=== PATIENT | male | born 1955 | race African-American/Black ===

== ENCOUNTER 2017-10-15 01:49 | Observation (INO) | payer MEDICAID, OTHER ==
[2017-10-15 04:18] LABS: Anion Gap 12 mmol/L (10-20); BUN (Urea Nitrogen) 17 mg/dL (8.4-25.7); Calc. Creatinine Clearance 0 mL/min (70-130); Calcium 8.1 mg/dL (7.8-10.44); Carbon Dioxide 23 mmol/L (23-31); Chloride 113 mmol/L (98-107); Estimated GFR-MDRD 56
--- NOTE | 2017-10-15 08:50 | HP-2 ---
CODE STATUS: FULL. PRIMARY CARE PHYSICIAN: Mil eduardo. ATTENDING: Dr. Javy Slade RESIDENT: Ted Asher M.D. HISTORIAN: History taken from the ED doctor who got history from snf as the patient is not a very reliable historian. CHIEF COMPLAINT: Cough. HISTORY OF PRESENT ILLNESS: Mr. Gates is a 62-year-old male with past medical history of dementia, bowel diversion with ostomy and schizophrenia who lives at a snf. At the snf he munguia d a temperature of 103 and a cough that started yesterday. He was taken to the [place] ER where he tested positive for influenza A. He had a lactate of 2.0 and he had an elevated temperature and he had tachycardia. They transferred him to [facility] ER for sepsis workup. In the ER in [facility] he received a 1 liter normal saline bolus. PAST MEDICAL HISTORY: 1. Dementia. 2. Schizophrenia. 3. Colostomy for small bowel diversion. 4. Type 2 diabetes mellitus. PAST SURGICAL HISTORY: Colostomy. ALLERGIES: No known drug allergies. MEDICATIONS: 1. Aspirin 81 mg p.o. daily. 2. MiraLax 17 grams p.o. daily. 3. NovoLog 35 units subcu 3 times a day. 4. Potassium chloride 20 mEq p.o. 5. Risperdal 2 mg p.o. daily. 6. Vitamin D3. FAMILY HISTORY: Unknown. SOCIAL HISTORY: Unknown. REVIEW OF SYSTEMS: Unable to obtain as the patient just said no to every question and does not seem like a very reliable historian. PHYSICAL EXAMINATION: VITAL SIGNS: Blood pressure 138/69, pulse 102, respiratory rate 18, temperature 98.2, pulse ox 98% o n room air. Current weight 113 kilograms. GENERAL: The patient is alert and oriented x0 in no acute distress. He is morbidly obese. He did n ot interact appropriately throughout the encounter. EYES: Pupils are equal, round, reactive to light and accommodation. Extraocular muscles intact. Co njunctiva within normal limits. ENT: Tympanic membranes pearly balderrama without bulging or erythema. Nasal mucosa and oropharynx within normal limits. NECK: Supple, without lymphadenopathy or thyromegaly. CARDIOVASCULAR: Rate was tachycardic. Regular rhythm. No murmurs or gallops. RESPIRATORY: Normal effort, no retractions. Lungs had minimal rhonchi bilaterally. SKIN: Warm and dry without cyanosis or lesions. ABDOMEN: Soft, nontender. Ostomy bag on the left side. No masses or distention. EXTREMITIES: No clubbing, cyanosis or edema. MUSCULOSKELETAL: Structure and tone within normal limits. Full range of motion. NEUROLOGIC: No focal deficits. Limited neuro exam performed. LABORATORY DATA: White blood cell count 6.5, hemoglobin 11.2, hematocrit 33.5, platelets 159. Sodiu m 143, potassium 4.8, chloride 113, carbon dioxide 23, BUN 17, creatinine 1.52, glucose 131, calcium 8.1, lactic acid 1.6. Influenza A positive in [place]. ASSESSMENT AND PLAN: A 62-year-old male with past medical history of dementia. 1. Sepsis, likely secondary to influenza A. Start Tamiflu, IV fluids at 150 mL an hour. Continue t o monitor vitals. Place on observation. 2. Type 2 diabetes mellitus. Continue home medications, Accu-Cheks a.c. and at bedtime, hyperglycem ic protocol. 3. Acute kidney injury. Creatinine initially 1.7 in [place] ER, after receiving IV fluids it i s now down to 1.52. We will continue IV fluids and continue to monitor kidney function. 4. Diet: Heart healthy, consistent carbohydrate. 5. Activity: Ambulate with assist. CODE STATUS: Full code. DISPOSITION/LENGTH OF HOSPITAL STAY: One day. Symptomatic medication will be provided. History and physical exam as well as management discussed with Dr. Slade.
--- NOTE | 2017-10-15 09:09 | PDOC.FM ---
- Subjective Subjective: Patient pleasant and has no complaints. Denies pain. Simply states he is ready to go home. - Objective MAR Reviewed: Yes Result Diagrams: 10/15/17 02:26 <Briana Watts - Last Filed: 10/15/17 12:05> - Objective Vital Signs & Weight: Vital Signs (12 hours) Temp Pulse Resp BP Pulse Ox 10/15/17 10:33 98.9 F 105 H 20 10/15/17 09:46 98.9 F 105 H 20 140/66 95 Weight Weight 104.893 kg Result Diagrams: 10/15/17 02:26 <Jvay Slade - Last Filed: 10/15/17 12:15> Phys Exam - Physical Examination anterior wheezing bilaterally, wheezing in posterior RENZO Cardiovascular: RRR, no significant murmur Gastrointestinal: soft, non-tender, no distention Musculoskeletal: no edema Neurological: non-focal Deviation from normal: not oriented to person, place, or time. Oriented with clues. Skin: cap refill <2 seconds <Briana Watts - Last Filed: 10/15/17 12:05> Dx/Plan (1) Influenza A Code(s): J10.1 - FLU DUE TO OTH IDENT INFLUENZA VIRUS W OTH RESP MANIFEST Status: Acute Plan: Likely source of fever. treat symptomatically and patient received tamiflu. cont. LIkely can return to assisted later today. (2) Diabetes mellitus Code(s): E11.9 - TYPE 2 DIABETES MELLITUS WITHOUT COMPLICATIONS Status: Chronic Plan: cont home regimen. (3) Dementia Code(s): F03.90 - UNSPECIFIED DEMENTIA WITHOUT BEHAVIORAL DISTURBANCE Status: Chronic <Briana Watts - Last Filed: 10/15/17 12:05> Attending Addendum - Attending Addendum I personally evaluated the patient and discussed the management with Dr. Watts. I agree with the History, Examination, Assessment and Plan documented above with any addition or exceptions noted below. Patient feeling well this morning, reports he is ready to go home. We still do not have a valid explanation for the fever he had in the ER. Blood cultures and urine cultures obtained but are negative thus far. Will check respiratory viral panel. Encourage ambulation and fluid hydration. May consider discharge later today depending on his clinical status. <Javy Slade - Last Filed: 10/15/17 12:15>
[2017-10-15] MEDS ORDERED: Acetaminophen 325 MG TAB PO PRN ×2 (10:17→10:30)
[2017-10-15] MEDS ORDERED: Dextrose 5% in Water 1,000 ML IV PRN (10:17)
[2017-10-15] MEDS ORDERED: HumaLOG 300 UNITS/3 ML VIAL SC PRN (10:17)
[2017-10-15] MEDS ORDERED: Insulin NPH/Reg Insulin Hm 300 UNITS/3 ML VIAL SC SCH ×2 (10:17→11:00)
[2017-10-15] MEDS ORDERED: Oseltamivir 75 MG CAP PO SCH ×2 (10:17→11:00)
[2017-10-15] MEDS ORDERED: Dextrose 50% Abboject 50 ML SYRINGE SLOW IVP PRN (10:17)
[2017-10-15] MEDS ORDERED: risperiDONE 1 MG TAB PO SCH ×2 (10:17→11:00)
[2017-10-15 10:25] VITALS: BMI 39.6
[2017-10-15] MEDS ORDERED: Ondansetron ODT 4 MG TAB SL PRN (10:30)
[2017-10-15] MEDS ORDERED: Ondansetron HCl/PF 4 MG/2 ML Vial IVP PRN (10:30)
[2017-10-15] MEDS ORDERED: Sodium Chloride 0.9% 1,000 ML IV SCH (10:30)
--- NOTE | 2017-10-15 12:23 | PDOC.EVN ---
Attending Addendum - Attending Addendum I personally evaluated the patient and discussed the management with Dr. Asher. I agree with the History, Examination, Assessment and Plan documented in his H& P with any addition or exceptions noted below. Patient here with congestion, runny nose, fever, and cough with influenza test positive. Will treat with Tamiflu. Patient has mild persistent tachycardia and therefore will fluid hydrate. Has some degree of ALVARO on lab testing though we do not know his baseline Cr. Will see if it improves through the day. Patient is well appearing. If does well through the day, he may be able to be discharged relatively soon. Symptomatic treatment will be provided.
[2017-10-15] MEDS: Sodium Chloride 0.9% 1,000 ML IV SCH ×2 (12:25→18:47)
[2017-10-15 15:26] LABS: Anion Gap 11 mmol/L (10-20); BUN (Urea Nitrogen) 14 mg/dL (8.4-25.7); Calc. Creatinine Clearance 82 mL/min (70-130); Calcium 8.4 mg/dL (7.8-10.44); Carbon Dioxide 23 mmol/L (23-31); Chloride 109 mmol/L (98-107); Estimated GFR-MDRD 64
[2017-10-15] MEDS: Insulin NPH/Reg Insulin Hm 300 UNITS/3 ML VIAL SC SCH ×2 (15:37→21:44)
[2017-10-15] MEDS: HumaLOG 300 UNITS/3 ML VIAL SC PRN (17:32)
[2017-10-15 21:30] LABS: Bilirubin Negative (Negative); Blood, Urine Large (Negative); Glucose, Urine (Dipstick) 250 mg/dL (Negative); Ketone, Urine Negative (Negative); Nitrite Negative (Negative); Protein, Urine (Dipstick) Negative (Neg-Trace)
[2017-10-15 21:33] LABS: Bacteria/HPF None Seen HPF (None Seen); Hyaline Casts/LPF 4-6 HYALINE CAST LPF (0-3 Hyaline); RBC/HPF 21-50 HPF (0-3); Squamous Epithelial None Seen HPF (0-3); WBC/HPF 0-3 HPF (0-3)
[2017-10-15] MEDS: Oseltamivir 75 MG CAP PO SCH (21:44)
[2017-10-16] MEDS: Sodium Chloride 0.9% 1,000 ML IV SCH ×2 (01:50→07:21)
[2017-10-16 05:07] LABS: #Basophils 0.1 thou/uL (0.0-0.2); #Eosinphils 0.4 thou/uL (0.0-0.7); #Lymphocytes 1.7 thou/uL (1.20-3.40); #Monocytes 0.7 thou/uL (0.11-0.59); #Neutrophils 2.5 thou/uL (1.40-6.50); %Basophils 1.9 % (0.0-1.0); %Eosinophils 7.3 % (0.0-10.0); %Lymphocytes 31.5 % (21.0-51.0); %Monocytes 12.2 % (0.0-10.0); Hematocrit 31.2 % (42.0-52.0); Mean Platelet Volume 7.1 fL (7.4-10.4); Red Blood Cell (RBC) Count 3.26 mill/uL (4.70-6.10); White Blood Cell (WBC) Count 5.3 thou/uL (4.8-10.8)
[2017-10-16 05:08] LABS: Anion Gap 9 mmol/L (10-20); BUN (Urea Nitrogen) 10 mg/dL (8.4-25.7); Calc. Creatinine Clearance 95 mL/min (70-130); Calcium 7.8 mg/dL (7.8-10.44); Carbon Dioxide 24 mmol/L (23-31); Chloride 108 mmol/L (98-107); Estimated GFR-MDRD 77
--- NOTE | 2017-10-16 06:50 | PDOC.FM ---
- Subjective Subjective: Patient again states he is feeling fine this morning and ready to go home. States he is not eating here because he doesn't like the food. - Objective Vital Signs & Weight: Vital Signs (12 hours) Temp Pulse Resp BP BP Pulse Ox 10/16/17 04:15 99.0 F 105 H 20 124/60 95 10/16/17 00:09 98.5 F 103 H 16 132/63 92 L 10/15/17 20:20 98.3 F 100 16 142/64 H 98 10/15/17 19:35 98.3 F 100 16 Weight Weight 102.92 kg I&O: 10/14/17 10/15/17 10/16/17 06:59 06:59 06:59 Intake Total 3214 Output Total 2049 Balance 1164 Result Diagrams: 10/16/17 04:39 10/16/17 04:39 <Briana Watts - Last Filed: 10/16/17 06:48> - Objective Vital Signs & Weight: Vital Signs (12 hours) Temp Pulse Resp BP BP Pulse Ox 10/16/17 11:23 98.8 F 87 18 123/60 96 10/16/17 08:21 99.2 F 103 H 16 151/74 H 95 10/16/17 07:59 99.0 F 105 H 20 10/16/17 04:15 99.0 F 105 H 20 124/60 95 Weight Weight 102.92 kg I&O: 10/15/17 10/16/17 10/17/17 06:59 06:59 06:59 Intake Total 3214 300 Output Total 2049 Balance 1164 300 Result Diagrams: 10/16/17 04:39 10/16/17 04:39 <Javy Slade - Last Filed: 10/16/17 12:24> Phys Exam - Physical Examination Constitutional: NAD HEENT: PERRLA, moist MMs Respiratory: no wheezing, no rales, no rhonchi, clear to auscultation bilateral Cardiovascular: no significant murmur tachycardic, regular Gastrointestinal: soft, non-tender, no distention, positive bowel sounds Musculoskeletal: no edema Neurological: non-focal, normal sensation Deviation from normal: slow muffled speech. oriented to person and time and situation. <Briana Watts - Last Filed: 10/16/17 06:48> Dx/Plan (1) Influenza A Code(s): J10.1 - FLU DUE TO OTH IDENT INFLUENZA VIRUS W OTH RESP MANIFEST Status: Acute Plan: Patient improving. To cont a 10 day course of tamiflu. Remains tachycardic but confirmed with custodial that he generaly always runs in the 90-110s. Will DC fluids and plan for dc later this morning. Cont supportive care. (2) Diabetes mellitus Code(s): E11.9 - TYPE 2 DIABETES MELLITUS WITHOUT COMPLICATIONS Status: Chronic Plan: Patient receiving sliding scale and NPH held since he is not eating. Cont routine meds upon dc. (3) Dementia Code(s): F03.90 - UNSPECIFIED DEMENTIA WITHOUT BEHAVIORAL DISTURBANCE Status: Chronic (4) Acute kidney injury Code(s): N17.9 - ACUTE KIDNEY FAILURE, UNSPECIFIED Status: Acute Plan: Improved s/p fluids. Confirmed with SC that last creatinine in 07/2017 was 1.5 and GFR 57. Patient at iimproved from baseline at this point. Ready for DC. <Briana Watts - Last Filed: 10/16/17 06:48> Attending Addendum - Attending Addendum I personally evaluated the patient and discussed the management with Dr. Watts. I agree with the History, Examination, Assessment and Plan documented above with any addition or exceptions noted below. Patient symptomatically improved today. Continues on treatment for Influenza. Has been afebrile. Tachycardia is at baseline per assistant terminal manager care facility. Renal function improved. Stable for discharge. <Javy Slade - Last Filed: 10/16/17 12:24>
[2017-10-16] MEDS ORDERED: Enoxaparin Sodium 30 MG/0.3 ML SYRINGE SC SCH (09:00)
[2017-10-16] MEDS ORDERED: risperiDONE 1 MG TAB PO SCH (09:00)
[2017-10-16] MEDS: Insulin NPH/Reg Insulin Hm 300 UNITS/3 ML VIAL SC SCH ×2 (10:00→15:32)
[2017-10-16] MEDS: HumaLOG 300 UNITS/3 ML VIAL SC PRN (11:18)
[2017-10-16 12:07] VITALS: BP 123/60; TEMP 98.8
[2017-10-16] MEDS: Oseltamivir 75 MG CAP PO SCH (12:45)
--- NOTE | 2017-10-17 11:32 | DIS-2 ---
DATE OF ADMISSION: 10/15/2017 DATE OF DISCHARGE: 10/16/2017 ADMITTING ATTENDING: Javy Slade MD DISCHARGE ATTENDING: Javy Slade MD PRIMARY DIAGNOSIS: Influenza. SECONDARY DIAGNOSES: 1. Type 2 diabetes. 2. Dementia. 3. Schizophrenia. 4. Acute kidney injury. DISCHARGE MEDICATIONS: 1. Risperidone 2 mg p.o. b.i.d. 2. Potassium chloride 20 mEq p.o. daily. 3. Insulin NovoLog 35 units subcutaneously t.i.d. 4. Polyethylene glycol 17 g p.o. daily. 5. Aspirin 81 mg p.o. daily. 6. Vitamin D3 2000 units p.o. daily. 7. Niacin 200 mg p.o. at bedtime. 8. Metoprolol 25 mg p.o. b.i.d. 9. Melatonin 3 mg p.o. at bedtime. 10. Lisinopril 5 mg p.o. daily. 11. Lasix 20 mg p.o. daily. 12. Coenzyme Q10 100 mg p.o. daily. 13. Fenofibrate 145 mg p.o. daily. 14. Donepezil 10 mg p.o. at bedtime. 15. Insulin glargine or Toujeo 145 units subcutaneously daily. 16. Simethicone 80 mg p.o. every 6 hours p.r.n. 17. Magnesium hydroxide 30 mL p.o. daily. 18. Chlorophyllin copper complex 100 mg p.o. b.i.d. 19. Tamiflu 75 mg p.o. b.i.d. HISTORY OF PRESENT ILLNESS AND HOSPITAL COURSE: This is a 62-year-old male who was sent over from [facility] with a complaint of fever and a cough. The patient was found to have influenza in the ER; however, was also tachycardic and was admitted for observation in the hospital. The patient con tinued to do well throughout his hospital stay, was started on Tamiflu. It was verified through his residential that the patient generally always run somewhere between 90 beats per minute and 110 beat s per minute and so has a stable chronic tachycardia. Also of note, it did appear that the patient h ad an acute kidney injury and was given fluids and the kidney injury improved. The patient did well and was discharged back to the residential. DISPOSITION: Stable. DISCHARGE INSTRUCTIONS: 1. Location: Home. 2. Diet: Diabetic diet. 3. Activity: As tolerated. 4. Follow up with primary care physician in 1-2 weeks.
== END 2017-10-16 16:18 ==
LOC: ERS 01:49 → 2SW 06:53
PROVIDERS: ADMIT Family Medicine; ATTEND Family Medicine
DX: A41.9 Sepsis, unspecified organism (principal); J09.X2 Influenza due to identified novel influenza A virus with other respiratory manifestations; N17.9 Acute kidney failure, unspecified; E11.9 Type 2 diabetes mellitus without complications; F03.90 Unspecified dementia, unspecified severity, without behavioral disturbance, psychotic disturbance, mood disturbance, and anxiety; F20.9 Schizophrenia, unspecified; E66.01 Morbid (severe) obesity due to excess calories; Z68.38 Body mass index [BMI] 38.0-38.9, adult; Z79.82 Long term (current) use of aspirin; Z79.4 Long term (current) use of insulin; Z79.899 Other long term (current) drug therapy; Z93.3 Colostomy status
CPT/HCPCS: 36415; 36416; 51702; 80048; 81001; 83605; 83880; 85025; 87086; 93005; 94640; 96360; 96361; 96372; G0378; J1650; J7620

== ENCOUNTER 2017-10-26 23:59 | Inpatient (IN) | payer OTHER ==
[2017-10-27] MEDS ORDERED: Ondansetron HCl/PF 4 MG/2 ML Vial IVP PRN ×2 (02:48→07:21)
[2017-10-27] MEDS ORDERED: Ondansetron ODT 4 MG TAB SL PRN (02:48)
[2017-10-27 04:54] VITALS: BMI 42.1
[2017-10-27] MEDS ORDERED: Dextrose 5% in Water 1,000 ML IV PRN (07:21)
[2017-10-27] MEDS ORDERED: Loratadine 10 MG TAB PO PRN (07:21)
[2017-10-27] MEDS ORDERED: Simethicone Chewable 80 MG TAB PO PRN (07:21)
[2017-10-27] MEDS ORDERED: Eucerin (Mineral Oil/Petrolatum,White) 30 gm Jar TOP PRN (07:21)
[2017-10-27] MEDS ORDERED: Artificial Tears 18 DROP/0.9 ML EA EYE PRN (07:21)
[2017-10-27] MEDS ORDERED: Benzonatate 100 MG CAP PO PRN (07:21)
[2017-10-27] MEDS ORDERED: Ondansetron ODT 4 MG TAB PO PRN (07:21)
[2017-10-27] MEDS ORDERED: Loperamide HCl 2 MG CAP PO PRN (07:21)
[2017-10-27] MEDS ORDERED: Senokot 8.6 MG TAB PO PRN (07:21)
[2017-10-27] MEDS ORDERED: Mag-Al 1200 mg/1200 mg/30 ML UDCUP PO PRN (07:21)
[2017-10-27] MEDS ORDERED: Acetaminophen 325 MG TAB PO PRN (07:21)
[2017-10-27] MEDS ORDERED: hydrALAZINE 20 MG/ML VIAL SLOW IVP PRN (07:21)
[2017-10-27] MEDS ORDERED: Zolpidem Tartrate 5 MG TAB PO PRN (07:21)
[2017-10-27] MEDS ORDERED: HYDROcodone/Acetaminophen 5/325 mg Tablet PO PRN (07:21)
[2017-10-27] MEDS ORDERED: Dextrose 50% Abboject 50 ML SYRINGE SLOW IVP PRN (07:21)
[2017-10-27] MEDS ORDERED: Sodium Chloride 0.65% Nasal 44 ML BOT EA NARE PRN (07:21)
[2017-10-27] MEDS ORDERED: Chloraseptic Spray 180 ml Bottle PO PRN (07:21)
[2017-10-27] MEDS ORDERED: Diabetic Tussin 200 MG/10 ML UDCUP PO PRN (07:21)
[2017-10-27] MEDS ORDERED: Milk Of Magnesia 30 ML UDCUP PO PRN (07:21)
[2017-10-27] MEDS: Sodium Chloride 0.9% 1,000 ML IV SCH ×3 (09:14→20:24)
[2017-10-27] MEDS: Fenofibrate Nanocrystallized 145 MG TAB PO SCH (09:22)
[2017-10-27] MEDS: risperiDONE 1 MG TAB PO SCH ×2 (09:22→20:24)
[2017-10-27] MEDS: Famotidine 20 MG TAB PO SCH (09:23)
[2017-10-27] MEDS: Metoprolol Tartrate 25 MG TAB PO SCH ×2 (09:24→20:24)
[2017-10-27] MEDS: Heparin 5,000 UNITS/ML VIAL SC SCH ×2 (09:27→20:25)
[2017-10-27] MEDS: Polyethylene Glycol 3350 17 GM Packet PO SCH (09:27)
[2017-10-27] MEDS: Ubidecarenone 50 MG CAP PO SCH (09:28)
--- NOTE | 2017-10-27 10:15 | HP ---
PRIMARY CARE PHYSICIAN: Dr. Hurst. REASON FOR ADMISSION: Transfer from [facility] for fever and hypotension. HISTORY OF PRESENT ILLNESS: A 62-year-old -Russian male who has underlying seizure schizophr enia and dementia who lives at the long-term care facility. Patient was sent from retirement to [facility] emergency room for fever and hypotension. This patient is a very poor historian because of his u nderlying cognitive status, so he is not able to provide any good history, but as per retirement pe ople, patient was having low grade fever as well as low blood pressure and the patient was also havin g tachycardia and they suspected sepsis and that is why they sent him to emergency room for evaluatio n. He was recently admitted in our hospital for flu. Patient was recently admitted in our hospital and he was discharged to retirement on 10/17/2017. At that time, patient had a positive influenza A and he was given Tamiflu treatment. Patient has colostomy in place and it is uncertain whether Del Castillo catheter was placed at [facility] or this patient has indwelling Del Castillo catheter. When I saw this morning, at that time, patient was arousable and he has Del Castillo catheter which was draining pinkish urine. The patient was n ot able to provide any further history. REVIEW OF SYSTEMS: The patient mostly nods no to all questions. Review of systems is not reliable, but I tried to review all review of system with him, but is completely unreliable. The following complete review of systems was negative, unless otherwise mentioned in the HPI or below : Constitutional: Weight loss or gain, ability to conduct usual activities. Skin: Rash, itching. Eyes: Double vision, pain. ENT/Mouth: Nose bleeding, neck stiffness, pain, tenderness. Cardiovascular: Palpitations, dyspnea on exertion, orthopnea. Respiratory: Shortness of breath, wheezing, cough, hemoptysis, fever or night sweats. Gastrointestinal: Poor appetite, abdominal pain, heartburn, nausea, vomiting, constipation, or diarr hea. Genitourinary: Urgency, frequency, dysuria, nocturia. Musculoskeletal: Pain, swelling. Neurologic/Psychiatric: Anxiety, depression. Allergy/Immunologic: Skin rash, bleeding tendency. EMERGENCY ROOM COURSE: At [facility], patient was given IV fluid, levofloxacin 500 mg, Tamiflu and Tylenol 1 gram. PAST MEDICAL HISTORY: Schizophrenia, dementia, diabetes type 2, morbid obesity with BMI 42, dyslipid emia, gastroesophageal reflux disease, hypertension. PAST SURGICAL HISTORY: Colostomy and laparotomy. PAST PSYCHIATRIC HISTORY: Schizophrenia and dementia. CURRENT HOME MEDICATIONS: Aspirin 81 mg p.o. daily, Nullo 100 mg p.o. b.i.d., vitamin D3 2000 units p.o. daily, Aricept 10 mg p.o. at bedtime, TriCor 145 mg p.o. daily, Lasix 20 mg p.o. daily, NovoLog insulin 32 units subcu t.i.d., Lantus insulin 145 units subcu daily, Humulin insulin t.i.d., lisinopr il 5 mg p.o. daily, Milk of Magnesia 30 mL p.o. daily p.r.n., melatonin 3 mg p.o. at bedtime, Lopress or 12.5 mg p.o. b.i.d., niacin 1000 mg p.o. at bedtime, MiraLax 17 grams p.o. daily, potassium chlori de 20 mEq p.o. b.i.d., risperidone 2 mg p.o. b.i.d., simethicone 80 mg p.o. q.6 hourly, p.r.n., Coenz yme Q10 100 mg p.o. daily. ALLERGIES: PENICILLIN. SOCIAL HISTORY: Patient lives at retirement. No history of tobacco, alcohol or illicit drug abuse . FAMILY HISTORY: The patient is not able to provide any family history at this point, so unable to ob tain from him. PHYSICAL EXAMINATION: VITAL SIGNS: On arrival, blood pressure 112/54, pulse 93, respiratory rate 18, temperature 99.1, sat uration 98% on room air. At [facility], patient was tachycardic, febrile with T-max of 100.4 and blood pressure was 98/47. GENERAL: Patient is currently arousable, awake, chronically ill, no obvious acute distress. HEAD: Normocephalic, atraumatic. EYES: Pupils round, reactive to light. Extraocular muscle intact. ENT: Dry appearing mucous membranes. No oral lesion, no pharyngeal erythema, no thrush. NECK: No JVD, no thyromegaly, no carotid bruits. No meningeal signs of irritation. LUNGS: Clear to auscultation without any rhonchi or rales. CARDIAC: S1, S2 regular. No murmur elicited, no gallop, no rub. ABDOMEN: Obesity present. Colostomy in place. Laparotomy scar noted. GENITALIA: Del Castillo catheter draining pinkish urine. BACK: Examination unremarkable, no CVA tenderness. EXTREMITIES: Upper extremity; passive movement of all joints are normal. Lower extremities: No harrison ma. Good peripheral pulsation. SKIN: No skin rash. NEUROLOGIC: Grossly nonfocal examination. He moves all 4 limbs. PSYCHIATRIC: Flat affect. SIGNIFICANT LABORATORY DATA AND IMAGING DATA: CBC: WBC 20.3, hemoglobin 11.3, platelets 259 with le ft shift and bandemia. BMP: Sodium 138, potassium 4.5, chloride 103, carbon dioxide 24, anion gap 1 6, BUN 30, creatinine 1.96, glucose 213, calcium 8.8. LFT: AST 12, ALT 15, alkaline phosphatase 54, albumin 3.4. Lactic acid 1.4. Urinalysis suggestive of urinary tract infection. Chest x-ray based on my review, no acute cardiopulmonary process. ASSESSMENT AND PLAN/IMPRESSION: 1. Sepsis with acute organ dysfunction. This patient has leukocytosis, bandemia, tachycardia, fever and source of infection is urinary tract infection. He has acute kidney failure. In this way, he m eets sepsis with acute organ dysfunction criteria. Patient will be on broad spectrum antibiotic ther apy with levofloxacin and will follow up on culture result. We will continue with intravenous fluid and change antibiotic accordingly. 2. Acute kidney failure, likely due to prerenal etiology plus underlying sepsis. We will avoid neph rotoxic agents and we will continue with IV fluid and we will repeat renal function test tomorrow. 3. Hypotension, likely due to sepsis. We will hold on antihypertensive medication because of low bl ood pressure. 4. Urinary tract infection. It is unclear whether patient has chronic indwelling Del Castillo catheter at retirement or not, but seems like the Del Castillo catheter was inserted at [facility] an d it is draining purulent urine. So this patient does have urinary tract infection and patient is on levofloxacin therapy. We will follow up on culture result and change antibiotic therapy accordingly . 5. Diabetes type 2. We will continue with insulin as per sliding scale per protocol. Diabetic diet will be given and we will verify his insulin dose at retirement and depending upon blood sugar, we will resume dose insulin while in hospital. 6. Dyslipidemia. We will continue TriCor 145 mg p.o. at bedtime while in hospital along with niacin 1000 mg p.o. at bedtime. 7. Schizophrenia. We will continue risperidone 2 mg p.o. b.i.d. 8. Alzheimer's dementia. We will continue Aricept 10 mg p.o. at bedtime. 9. Colostomy status. We will provide colostomy care. 10. Deep venous thrombosis prophylaxis, heparin 5000 units subcu twice daily. 11. Gastrointestinal prophylaxis. Pepcid 20 mg p.o. daily. 12. CODE STATUS: The patient is FULL CODE. Patient does not have any surrogate decision maker. 13. Morbid obesity with body mass index of 42. Weight loss advised. Disposition plan based on clinical course. We are expecting patient's stay in the hospital more than 2 midnights. Plan of care discussed with the patient in detail.
[2017-10-27] MEDS: Donepezil HCl 10 MG TAB PO SCH (20:24)
[2017-10-27] MEDS: Melatonin 3 MG TAB PO SCH (20:24)
[2017-10-27] MEDS: Niacin 500 MG TAB PO SCH (20:25)
[2017-10-28 05:23] LABS: ALT (SGPT) 10 U/L (8-55); AST (SGOT) 13 U/L (5-34); Albumin 2.9 g/dL (3.4-4.8); Alkaline Phosphatase 64 U/L (40-150); Anion Gap 17 mmol/L (10-20); BUN (Urea Nitrogen) 15 mg/dL (8.4-25.7); Bilirubin, Total 0.3 mg/dL (0.2-1.2); Calc. Creatinine Clearance 94 mL/min (70-130); Calcium 8.5 mg/dL (7.8-10.44); Carbon Dioxide 17 mmol/L (23-31); Chloride 103 mmol/L (98-107); Estimated GFR-MDRD 63; Glucose 233 mg/dL (80-115); Potassium 4.6 mmol/L (3.5-5.1); Protein, Total 6.9 g/dL (5.8-8.1); Sodium 132 mmol/L (136-145)
[2017-10-28 05:42] LABS: Band 12 % (5-11); Hemoglobin 9.9 g/dL (14.0-18.0); Lymphocytes 11 % (21-51); MDiff Complete? YES; Mean Corpuscular HGB CONC 32.3 g/dL (32.0-36.0); Mean Corpuscular Volume 95.8 fl (80.0-94.0); Mean Platelet Volume 7.3 fL (7.4-10.4); Monocytes 10 % (0-10); Neutrophil 67 % (42-75); PLT Morphology Comment Appears Adequate; Platelet Count 249 thou/uL (130-400); RBC Distribution Width 11.5 % (11.5-14.5); Red Blood Cell (RBC) Count 3.19 mill/uL (4.70-6.10); White Blood Cell (WBC) Count 18.2 thou/uL (4.8-10.8)
[2017-10-28] MEDS: [UNRECOGNIZED DRUG - OTHER] PO SCH (06:21)
[2017-10-28] MEDS: Heparin 5,000 UNITS/ML VIAL SC SCH ×2 (08:56→20:57)
[2017-10-28] MEDS: Famotidine 20 MG TAB PO SCH (08:57)
[2017-10-28] MEDS: Metoprolol Tartrate 25 MG TAB PO SCH ×2 (08:57→20:56)
[2017-10-28] MEDS: Fenofibrate Nanocrystallized 145 MG TAB PO SCH (08:57)
[2017-10-28] MEDS ORDERED: FLU VACC QS2017-18 36 mo. & older 0.5 ML SYRINGE IM ONE (09:00)
[2017-10-28] MEDS: Sodium Chloride 0.9% 1,000 ML IV SCH (09:00)
[2017-10-28] MEDS: Polyethylene Glycol 3350 17 GM Packet PO SCH (09:03)
[2017-10-28] MEDS: Ubidecarenone 50 MG CAP PO SCH (09:48)
[2017-10-28] MEDS: Meropenem 1 GM in Sterile Water 20 ML SLOW IVP SCH ×2 (09:50→15:10)
--- NOTE | 2017-10-28 10:22 | PDOC.PN ---
- Subjective Encounter Start Date: 10/28/17 Encounter Start Time: 09:10 -: old records requested/rev pt has gross hematuria in tracey, no fever, overall doing well Patient seen and examined. No new complaints. No overnight events - Objective Resuscitation Status: Resuscitation Status FULL:Full Resuscitation MAR Reviewed: Yes Vital Signs & Weight: Vital Signs (12 hours) Temp Pulse Resp BP Pulse Ox 10/28/17 08:00 98.2 F 109 H 22 H 125/73 96 10/28/17 04:00 98.4 F 106 H 18 165/79 H 95 10/28/17 00:00 98.7 F 99 18 136/77 97 Weight Weight 268 lb 15.423 oz I&O: 10/27/17 10/28/17 10/29/17 06:59 06:59 06:59 Intake Total 1580 Output Total 2550 Balance -970 Result Diagrams: 10/28/17 03:30 10/28/17 03:30 Additional Labs: Accuchecks 10/28/17 10/27/17 10/27/17 04:42 20:27 12:22 POC Glucose 234 H 250 H 186 H Phys Exam - Physical Examination Constitutional: NAD HEENT: PERRLA, moist MMs, sclera anicteric Neck: no JVD, supple Respiratory: no wheezing, no rales, no rhonchi Cardiovascular: RRR, no significant murmur, no rub Gastrointestinal: soft, non-tender, no distention, positive bowel sounds colostomy+, tracey+ Musculoskeletal: no edema, pulses present Neurological: non-focal Lymphatic: no nodes Psychiatric: normal affect Skin: no rash, normal turgor Dx/Plan (1) Acute kidney failure Status: Acute (2) Sepsis with acute organ dysfunction Code(s): A41.9 - SEPSIS, UNSPECIFIED ORGANISM; R65.20 - SEVERE SEPSIS WITHOUT SEPTIC SHOCK Status: Acute (3) UTI (urinary tract infection) Status: Acute (4) Colostomy in place Code(s): Z93.3 - COLOSTOMY STATUS Status: Chronic (5) Diabetes type 2, controlled Code(s): E11.9 - TYPE 2 DIABETES MELLITUS WITHOUT COMPLICATIONS Status: Chronic (6) Dyslipidemia Code(s): E78.5 - HYPERLIPIDEMIA, UNSPECIFIED Status: Chronic (7) Schizophrenia Code(s): F20.9 - SCHIZOPHRENIA, UNSPECIFIED Status: Chronic (8) Gross hematuria Status: Acute - Plan cont current plan of care, continue antibiotics * continue IVF at reduced rate * renal function improving * follow culture * continue IV levaquin, add meropenam * will monitor hematuria, if not improving will consider urology evaluation * medication reviewed as below * symptomatic treatment. Review of Systems - Review of Systems Constitutional: negative: fever, chills, sweats, weakness, malaise, other ENT: negative: Ear Pain, Ear Discharge, Nose Pain, Nose Discharge, Nose Congestion, Mouth Pain, Mouth Swelling, Throat Pain, Throat Swelling, Other Respiratory: negative: Cough, Dry, Shortness of Breath, Hemoptysis, SOB with Excertion, Pleuritic Pain, Sputum, Wheezing Cardiovascular: negative: chest pain, palpitations, orthopnea, paroxysmal nocturnal dyspnea, edema, light headedness, other Gastrointestinal: negative: Nausea, Vomiting, Abdominal Pain, Diarrhea, Constipation, Melena, Hematochezia, Other Genitourinary: Hematuria. negative: Dysuria, Frequency, Incontinence, Retention , Other Musculoskeletal: negative: Neck Pain, Shoulder Pain, Arm Pain, Back Pain, Hand Pain, Leg Pain, Foot Pain, Other Skin: negative: Rash, Lesions, Kevin, Bruising, Other Other: not reliable due to dementia - Medications/Allergies Allergies/Adverse Reactions: Allergies Allergy/AdvReac Type Severity Reaction Status Date / Time Penicillins Allergy Verified 10/15/17 10:21 Medications: Current Medications Acetaminophen (Tylenol) 650 mg PO Q4H PRN PRN Reason: Headache/Fever or Pain Hydrocodone Bitart/Acetaminophen ([place] 5/325) 1 tab PO Q4H PRN PRN Reason: Moderate Pain (4-6) Al Hydroxide/Mg Hydroxide (Maalox) 30 ml PO Q6H PRN PRN Reason: Heartburn or Indigestion Albuterol/Ipratropium (Duoneb) 3 ml NEB Q4H PRN PRN Reason: SOB &/or Wheezing Artificial Tears (Tears Naturale) 0 drop EA EYE PRN PRN PRN Reason: Dry Eyes Aspirin (Aspirin Chewable) 81 mg PO DAILY [facility] Last Admin: 10/27/17 09:24 Dose: 81 mg Benzonatate (Tessalon) 100 mg PO Q4H PRN PRN Reason: Cough Cholecalciferol (Vitamin D3) 2,000 units PO DAILY [facility] Last Admin: 10/27/17 09:23 Dose: 2,000 units Coenzyme Q10 (Coenzyme Q10) 100 mg PO DAILY [facility] Last Admin: 10/27/17 09:28 Dose: 100 mg Dextrose/Water (Dextrose 50%) 25 gm SLOW IVP PRN PRN PRN Reason: Hypoglycemia Donepezil HCl (Aricept) 10 mg PO HS [facility] Last Admin: 10/27/17 20:24 Dose: 10 mg Famotidine (Pepcid) 20 mg PO DAILY [facility] Last Admin: 10/27/17 09:23 Dose: 20 mg Fenofibrate (Tricor) 145 mg PO DAILY [facility] Last Admin: 10/27/17 09:22 Dose: 145 mg Glucagon (Glucagon) 1 mg IM PRN PRN PRN Reason: Hypoglycemia Guaifenesin (Robitussin Sf) 200 mg PO Q4H PRN PRN Reason: Cough Heparin Sodium (Porcine) (Heparin) 5,000 units SC BID [facility] Last Admin: 10/27/17 20:25 Dose: Not Given Hydralazine HCl (Apresoline) 10 mg SLOW IVP Q4H PRN PRN Reason: Systolic BP > 180 Dextrose/Water (D5w) 1,000 mls @ 0 mls/hr IV .Q0M PRN; As Directed PRN Reason: Hypoglycemia Levofloxacin 500 mg/ Device 100 mls @ 100 mls/hr IVPB 0800 [facility] Last Admin: 10/27/17 09:14 Dose: 100 mls Sodium Chloride (Normal Saline 0.9%) 1,000 mls @ 70 mls/hr IV .[id number] [facility] Meropenem 1 gm/ Sterile Water 20 mls @ 240 mls/hr SLOW IVP 0000,0800,1600 [facility] Insulin Human Lispro (Humalog) 0 units SC .MODERATE SLIDING SC PRN PRN Reason: Moderate Correctional Scale Insulin Human Lispro (Humalog) 0 units SC .BEDTIME SLIDING SC PRN PRN Reason: Bedtime Correctional Scale Loperamide HCl (Imodium) 2 mg PO PRN PRN PRN Reason: Diarrhea/Loose Stools Loratadine (Claritin) 10 mg PO DAILYPRN PRN PRN Reason: Sinus Symptoms Magnesium Hydroxide (Milk Of Magnesium) 30 ml PO DAILYPRN PRN PRN Reason: Constipation Melatonin (Melatonin) 3 mg PO HS [facility] Last Admin: 10/27/17 20:24 Dose: 3 mg Metoprolol Tartrate (Lopressor) 12.5 mg PO BID [facility] Last Admin: 10/27/17 20:24 Dose: 12.5 mg Mineral Oil/White Petrolatum (Eucerin Cream) 0 gm TOP BIDPRN PRN PRN Reason: Dry Skin Niacin (Niacin) 1,000 mg PO HS [facility] Last Admin: 10/27/17 20:25 Dose: 1,000 mg Ondansetron HCl (Zofran Odt) 4 mg PO Q6H PRN PRN Reason: Nausea/Vomiting Ondansetron HCl (Zofran) 4 mg IVP Q6H PRN PRN Reason: Nausea/Vomiting Phenol (Chloraseptic [place] 180 Ml Bot) 0 ml PO PRN PRN PRN Reason: Sore Throat Polyethylene Glycol (Miralax) 17 gm PO DAILY [facility] Last Admin: 10/27/17 09:27 Dose: 17 gm Risperidone (Risperidone) 2 mg PO BID [facility] Last Admin: 10/27/17 20:24 Dose: 2 mg Senna (Senokot) 2 tab PO HSPRN PRN PRN Reason: Constipation Simethicone (Mylicon Chewable) 80 mg PO Q6H PRN PRN Reason: Gas Pain Sodium Chloride ([place] Nasal [place] 0.65%) 0 ml EA NARE QIDPRN PRN PRN Reason: Nasal Congestion Zolpidem Tartrate (Ambien) 5 mg PO HSPRN PRN PRN Reason: Insomnia
[2017-10-28] MEDS: risperiDONE 1 MG TAB PO SCH ×2 (10:58→22:15)
[2017-10-28] MEDS: HumaLOG 300 UNITS/3 ML VIAL SC PRN ×3 (12:46→22:16)
[2017-10-28] MEDS ORDERED: Meropenem 1 GM in Sodium Chloride 0.9% 100 ML IVPB SCH (14:00)
[2017-10-28] MEDS: Donepezil HCl 10 MG TAB PO SCH (20:56)
[2017-10-28] MEDS: Niacin 500 MG TAB PO SCH (22:15)
[2017-10-28] MEDS: Melatonin 3 MG TAB PO SCH (22:15)
[2017-10-29] MEDS: Sodium Chloride 0.9% 1,000 ML IV SCH ×4 (00:32→16:00)
[2017-10-29] MEDS: Meropenem 1 GM in Sterile Water 20 ML SLOW IVP SCH ×3 (00:32→15:55)
[2017-10-29] MEDS: HumaLOG 300 UNITS/3 ML VIAL SC PRN ×3 (06:31→18:10)
[2017-10-29 08:48] LABS: Anion Gap 15 mmol/L (10-20); BUN (Urea Nitrogen) 11 mg/dL (8.4-25.7); Calc. Creatinine Clearance 112 mL/min (70-130); Carbon Dioxide 19 mmol/L (23-31); Chloride 103 mmol/L (98-107); Estimated GFR-MDRD 77; Glucose 220 mg/dL (80-115); Potassium 4.4 mmol/L (3.5-5.1); Sodium 133 mmol/L (136-145)
[2017-10-29] MEDS: Heparin 5,000 UNITS/ML VIAL SC SCH ×2 (09:18→22:47)
[2017-10-29] MEDS: Polyethylene Glycol 3350 17 GM Packet PO SCH (09:18)
[2017-10-29] MEDS: Fenofibrate Nanocrystallized 145 MG TAB PO SCH (09:19)
[2017-10-29] MEDS: Metoprolol Tartrate 25 MG TAB PO SCH ×2 (09:19→22:45)
[2017-10-29] MEDS: Famotidine 20 MG TAB PO SCH (09:21)
[2017-10-29 09:31] LABS: Band 1 % (5-11); Burr Cells SLIGHT = 2-5 cells (100X) (0-1/hpf); Eosinophils 2 % (0-10); Hemoglobin 10.7 g/dL (14.0-18.0); Lymphocytes 13 % (21-51); MDiff Complete? YES; Mean Corpuscular HGB CONC 32.5 g/dL (32.0-36.0); Mean Corpuscular Hemoglobin 30.7 pg (27.0-31.0); Mean Corpuscular Volume 94.7 fl (80.0-94.0); Mean Platelet Volume 6.8 fL (7.4-10.4); Monocytes 6 % (0-10); Myelocyte 1 % (0-0); Neutrophil 77 % (42-75); PLT Morphology Comment Appears Adequate; Platelet Count 280 thou/uL (130-400); RBC Distribution Width 11.5 % (11.5-14.5); Red Blood Cell (RBC) Count 3.48 mill/uL (4.70-6.10); White Blood Cell (WBC) Count 14.1 thou/uL (4.8-10.8)
[2017-10-29] MEDS: risperiDONE 1 MG TAB PO SCH ×2 (09:45→22:46)
[2017-10-29] MEDS: Ubidecarenone 50 MG CAP PO SCH (09:46)
--- NOTE | 2017-10-29 10:23 | PDOC.PN ---
- Subjective Encounter Start Date: 10/29/17 Encounter Start Time: 09:40 Patient seen and examined. No new complaints. No overnight events hematuria improving, no fever - Objective Resuscitation Status: Resuscitation Status FULL:Full Resuscitation MAR Reviewed: Yes Vital Signs & Weight: Vital Signs (12 hours) Temp Pulse Resp BP BP Pulse Ox 10/29/17 08:00 98.4 F 97 20 117/74 100 10/29/17 05:01 98.4 F 97 18 106/68 96 10/29/17 00:00 98.2 F 98 20 124/74 97 Weight Weight 268 lb 15.423 oz I&O: 10/28/17 10/29/17 10/30/17 06:59 06:59 06:59 Intake Total 1580 780 Output Total 2550 2600 Balance -970 -1820 Result Diagrams: 10/29/17 08:09 10/29/17 08:09 Additional Labs: Accuchecks 10/29/17 10/28/17 10/28/17 05:06 20:32 15:57 POC Glucose 214 H 248 H 224 H 10/28/17 11:52 POC Glucose 265 H Phys Exam - Physical Examination Constitutional: NAD HEENT: PERRLA, moist MMs, sclera anicteric Neck: no JVD, supple Respiratory: no wheezing, no rales, no rhonchi Cardiovascular: RRR, no significant murmur, no rub Gastrointestinal: soft, non-tender, no distention, positive bowel sounds colostomy+ tracey+ Musculoskeletal: no edema, pulses present Neurological: moves all 4 limbs Lymphatic: no nodes Psychiatric: normal affect Skin: no rash, normal turgor Dx/Plan (1) Acute kidney failure Status: Acute (2) Sepsis with acute organ dysfunction Code(s): A41.9 - SEPSIS, UNSPECIFIED ORGANISM; R65.20 - SEVERE SEPSIS WITHOUT SEPTIC SHOCK Status: Acute (3) UTI (urinary tract infection) Status: Acute (4) Colostomy in place Code(s): Z93.3 - COLOSTOMY STATUS Status: Chronic (5) Diabetes type 2, controlled Code(s): E11.9 - TYPE 2 DIABETES MELLITUS WITHOUT COMPLICATIONS Status: Chronic (6) Dyslipidemia Code(s): E78.5 - HYPERLIPIDEMIA, UNSPECIFIED Status: Chronic (7) Schizophrenia Code(s): F20.9 - SCHIZOPHRENIA, UNSPECIFIED Status: Chronic (8) Gross hematuria Status: Acute - Plan cont current plan of care, continue antibiotics * hematuria clearing * continue meropenam and levaquin * will get CT stone protocol * bandemia improving * repeat labs tomorrow * medication reviewed as below * symptomatic treatment. Review of Systems - Review of Systems Other: not reliable due to dementia - Medications/Allergies Allergies/Adverse Reactions: Allergies Allergy/AdvReac Type Severity Reaction Status Date / Time Penicillins Allergy Verified 10/15/17 10:21 Medications: Current Medications Acetaminophen (Tylenol) 650 mg PO Q4H PRN PRN Reason: Headache/Fever or Pain Hydrocodone Bitart/Acetaminophen ([place] 5/325) 1 tab PO Q4H PRN PRN Reason: Moderate Pain (4-6) Al Hydroxide/Mg Hydroxide (Maalox) 30 ml PO Q6H PRN PRN Reason: Heartburn or Indigestion Albuterol/Ipratropium (Duoneb) 3 ml NEB Q4H PRN PRN Reason: SOB &/or Wheezing Artificial Tears (Tears Naturale) 0 drop EA EYE PRN PRN PRN Reason: Dry Eyes Aspirin (Aspirin Chewable) 81 mg PO DAILY [facility] Last Admin: 10/29/17 09:19 Dose: 81 mg Benzonatate (Tessalon) 100 mg PO Q4H PRN PRN Reason: Cough Cholecalciferol (Vitamin D3) 2,000 units PO DAILY [facility] Last Admin: 10/29/17 09:18 Dose: 2,000 units Coenzyme Q10 (Coenzyme Q10) 100 mg PO DAILY [facility] Last Admin: 10/29/17 09:46 Dose: 100 mg Dextrose/Water (Dextrose 50%) 25 gm SLOW IVP PRN PRN PRN Reason: Hypoglycemia Donepezil HCl (Aricept) 10 mg PO HS [facility] Last Admin: 10/28/17 20:56 Dose: 10 mg Famotidine (Pepcid) 20 mg PO DAILY [facility] Last Admin: 10/29/17 09:21 Dose: 20 mg Fenofibrate (Tricor) 145 mg PO DAILY [facility] Last Admin: 10/29/17 09:19 Dose: 145 mg Glucagon (Glucagon) 1 mg IM PRN PRN PRN Reason: Hypoglycemia Guaifenesin (Robitussin Sf) 200 mg PO Q4H PRN PRN Reason: Cough Heparin Sodium (Porcine) (Heparin) 5,000 units SC BID [facility] Last Admin: 10/29/17 09:18 Dose: 5,000 units Hydralazine HCl (Apresoline) 10 mg SLOW IVP Q4H PRN PRN Reason: Systolic BP > 180 Dextrose/Water (D5w) 1,000 mls @ 0 mls/hr IV .Q0M PRN; As Directed PRN Reason: Hypoglycemia Levofloxacin 500 mg/ Device 100 mls @ 100 mls/hr IVPB 0800 [facility] Last Admin: 10/29/17 09:09 Dose: 100 mls Sodium Chloride (Normal Saline 0.9%) 1,000 mls @ 70 mls/hr IV .[id number] [facility] Last Admin: 10/29/17 00:32 Dose: 1,000 mls Meropenem 1 gm/ Sterile Water 20 mls @ 240 mls/hr SLOW IVP 0000,0800,1600 [facility] Last Admin: 10/29/17 09:09 Dose: 20 mls Insulin Human Lispro (Humalog) 0 units SC .MODERATE SLIDING SC PRN PRN Reason: Moderate Correctional Scale Last Admin: 10/29/17 06:31 Dose: 4 unit Insulin Human Lispro (Humalog) 0 units SC .BEDTIME SLIDING SC PRN PRN Reason: Bedtime Correctional Scale Last Admin: 10/28/17 22:16 Dose: 2 unit Loperamide HCl (Imodium) 2 mg PO PRN PRN PRN Reason: Diarrhea/Loose Stools Loratadine (Claritin) 10 mg PO DAILYPRN PRN PRN Reason: Sinus Symptoms Magnesium Hydroxide (Milk Of Magnesium) 30 ml PO DAILYPRN PRN PRN Reason: Constipation Melatonin (Melatonin) 3 mg PO [facility] Last Admin: 10/28/17 22:15 Dose: 3 mg Metoprolol Tartrate (Lopressor) 12.5 mg PO BID [facility] Last Admin: 10/29/17 09:19 Dose: 12.5 mg Mineral Oil/White Petrolatum (Eucerin Cream) 0 gm TOP BIDPRN PRN PRN Reason: Dry Skin Niacin (Niacin) 1,000 mg PO [facility] Last Admin: 10/28/17 22:15 Dose: 1,000 mg Ondansetron HCl (Zofran Odt) 4 mg PO Q6H PRN PRN Reason: Nausea/Vomiting Ondansetron HCl (Zofran) 4 mg IVP Q6H PRN PRN Reason: Nausea/Vomiting Phenol (Chloraseptic [place] 180 Ml Bot) 0 ml PO PRN PRN PRN Reason: Sore Throat Polyethylene Glycol (Miralax) 17 gm PO DAILY [facility] Last Admin: 10/29/17 09:18 Dose: 17 gm Risperidone (Risperidone) 2 mg PO BID [facility] Last Admin: 10/29/17 09:45 Dose: 2 mg Senna (Senokot) 2 tab PO HSPRN PRN PRN Reason: Constipation Simethicone (Mylicon Chewable) 80 mg PO Q6H PRN PRN Reason: Gas Pain Sodium Chloride ([place] Nasal [place] 0.65%) 0 ml EA NARE QIDPRN PRN PRN Reason: Nasal Congestion Zolpidem Tartrate (Ambien) 5 mg PO HSPRN PRN PRN Reason: Insomnia
--- NOTE | 2017-10-29 15:11 | CT ---
CT ABDOMEN AND PELVIS WITHOUT CONTRAST: HISTORY: Hematuria. FINDINGS: Absence of oral and IV contrast reduces the sensitivity of exam, particularly for the evaluation of s olid organs involved. Small bilateral pleural effusions are present. No calcified gallstones are seen. No free air or roberto e fluid is seen in the abdomen or pelvis. Postop changes of bowel surgery are seen in the abdomen. No calculi are seen in the kidneys, ureters, or the urinary bladder. No hydroureteral nephrosis is s een on either side. There is a Del Castillo catheter in the urinary bladder. There is air in the urinary b ladder likely due to instrumentation. There is perivesicular inflammatory change. The prostate is mildly enlarged. The small bowel lops are not abnormally dilated. There is fecal material in the co pastora. IMPRESSION: 1. No CT evidence of urinary tract calculi or obstruction. 2. Findings are suspicious for cystitis. 3. Small bilateral pleural effusions. POS: [facility]
[2017-10-29] MEDS: Melatonin 3 MG TAB PO SCH (22:45)
[2017-10-29] MEDS: Donepezil HCl 10 MG TAB PO SCH (22:45)
[2017-10-29] MEDS: Niacin 500 MG TAB PO SCH (22:46)
[2017-10-30] MEDS: Meropenem 1 GM in Sterile Water 20 ML SLOW IVP SCH ×4 (00:23→23:33)
[2017-10-30 05:33] LABS: Anion Gap 14 mmol/L (10-20); BUN (Urea Nitrogen) 12 mg/dL (8.4-25.7); Calc. Creatinine Clearance 118 mL/min (70-130); Calcium 9.3 mg/dL (7.8-10.44); Carbon Dioxide 22 mmol/L (23-31); Chloride 102 mmol/L (98-107); Estimated GFR-MDRD 82; Glucose 221 mg/dL (80-115); Potassium 4.7 mmol/L (3.5-5.1); Sodium 133 mmol/L (136-145)
[2017-10-30 05:43] LABS: Band 6 % (5-11); Eosinophils 1 % (0-10); Lymphocytes 10 % (21-51); MDiff Complete? YES; Mean Corpuscular HGB CONC 33.6 g/dL (32.0-36.0); Mean Corpuscular Hemoglobin 31.6 pg (27.0-31.0); Mean Corpuscular Volume 94.3 fl (80.0-94.0); Mean Platelet Volume 7.5 fL (7.4-10.4); Metamyelocyte 1 % (0-0); Monocytes 9 % (0-10); Neutrophil 73 % (42-75); PLT Morphology Comment Appears Adequate; Platelet Count 269 thou/uL (130-400); RBC Distribution Width 11.4 % (11.5-14.5); Red Blood Cell (RBC) Count 3.49 mill/uL (4.70-6.10); White Blood Cell (WBC) Count 14.9 thou/uL (4.8-10.8)
[2017-10-30] MEDS: Sodium Chloride 0.9% 1,000 ML IV SCH ×3 (06:25→17:22)
[2017-10-30] MEDS: HumaLOG 300 UNITS/3 ML VIAL SC PRN ×4 (07:09→20:28)
[2017-10-30] MEDS: Polyethylene Glycol 3350 17 GM Packet PO SCH (09:14)
[2017-10-30] MEDS: Famotidine 20 MG TAB PO SCH (09:16)
[2017-10-30] MEDS: Heparin 5,000 UNITS/ML VIAL SC SCH ×2 (09:16→20:28)
[2017-10-30] MEDS: Fenofibrate Nanocrystallized 145 MG TAB PO SCH (09:16)
[2017-10-30] MEDS: Ubidecarenone 50 MG CAP PO SCH (09:16)
[2017-10-30] MEDS: risperiDONE 1 MG TAB PO SCH ×2 (09:17→20:28)
[2017-10-30] MEDS: Metoprolol Tartrate 25 MG TAB PO SCH ×2 (09:17→20:27)
--- NOTE | 2017-10-30 10:39 | PDOC.PN ---
- Subjective Encounter Start Date: 10/30/17 Encounter Start Time: 09:20 hematuria cleared, no fever Patient seen and examined. No new complaints. No overnight events - Objective Resuscitation Status: Resuscitation Status FULL:Full Resuscitation MAR Reviewed: Yes Vital Signs & Weight: Vital Signs (12 hours) Temp Pulse Resp BP Pulse Ox 10/30/17 08:00 98.3 F 98 20 124/74 96 10/30/17 04:00 98.5 F 103 H 18 146/81 H 97 10/30/17 00:00 99.1 F 91 18 110/70 98 Weight Weight 268 lb 15.423 oz I&O: 10/29/17 10/30/17 10/31/17 06:59 06:59 06:59 Intake Total 780 1010 Output Total 2600 700 Balance -1820 310 Result Diagrams: 10/30/17 03:43 10/30/17 03:43 Additional Labs: Accuchecks 10/30/17 10/30/17 10/29/17 04:51 00:03 16:25 POC Glucose 235 H 229 H 341 H 10/29/17 12:17 POC Glucose 314 H Phys Exam - Physical Examination Constitutional: NAD HEENT: PERRLA, moist MMs, sclera anicteric Neck: no JVD, supple Respiratory: no wheezing, no rales, no rhonchi Cardiovascular: RRR, no significant murmur, no rub Gastrointestinal: soft, non-tender, no distention, positive bowel sounds Musculoskeletal: no edema, pulses present Neurological: non-focal, normal sensation, moves all 4 limbs Lymphatic: no nodes Psychiatric: normal affect Skin: no rash, normal turgor Dx/Plan (1) Acute kidney failure Status: Acute (2) Sepsis with acute organ dysfunction Code(s): A41.9 - SEPSIS, UNSPECIFIED ORGANISM; R65.20 - SEVERE SEPSIS WITHOUT SEPTIC SHOCK Status: Acute (3) UTI (urinary tract infection) Status: Acute (4) Colostomy in place Code(s): Z93.3 - COLOSTOMY STATUS Status: Chronic (5) Diabetes type 2, controlled Code(s): E11.9 - TYPE 2 DIABETES MELLITUS WITHOUT COMPLICATIONS Status: Chronic (6) Dyslipidemia Code(s): E78.5 - HYPERLIPIDEMIA, UNSPECIFIED Status: Chronic (7) Schizophrenia Code(s): F20.9 - SCHIZOPHRENIA, UNSPECIFIED Status: Chronic (8) Gross hematuria Status: Acute - Plan cont current plan of care, continue antibiotics * CT stone protocol noted * medication reviewed as below * symptomatic treatment * DC tracey today * continue meropenam and levaquin. * wbc still high but improving Review of Systems - Review of Systems Other: not reliable due to dementia - Medications/Allergies Allergies/Adverse Reactions: Allergies Allergy/AdvReac Type Severity Reaction Status Date / Time Penicillins Allergy Verified 10/15/17 10:21 Medications: Current Medications Acetaminophen (Tylenol) 650 mg PO Q4H PRN PRN Reason: Headache/Fever or Pain Hydrocodone Bitart/Acetaminophen ([place] 5/325) 1 tab PO Q4H PRN PRN Reason: Moderate Pain (4-6) Last Admin: 10/30/17 06:26 Dose: 1 tab Al Hydroxide/Mg Hydroxide (Maalox) 30 ml PO Q6H PRN PRN Reason: Heartburn or Indigestion Albuterol/Ipratropium (Duoneb) 3 ml NEB Q4H PRN PRN Reason: SOB &/or Wheezing Artificial Tears (Tears Naturale) 0 drop EA EYE PRN PRN PRN Reason: Dry Eyes Aspirin (Aspirin Chewable) 81 mg PO DAILY [facility] Last Admin: 10/30/17 09:16 Dose: 81 mg Benzonatate (Tessalon) 100 mg PO Q4H PRN PRN Reason: Cough Cholecalciferol (Vitamin D3) 2,000 units PO DAILY [facility] Last Admin: 10/30/17 09:16 Dose: 2,000 units Coenzyme Q10 (Coenzyme Q10) 100 mg PO DAILY [facility] Last Admin: 10/30/17 09:16 Dose: 100 mg Dextrose/Water (Dextrose 50%) 25 gm SLOW IVP PRN PRN PRN Reason: Hypoglycemia Donepezil HCl (Aricept) 10 mg PO HS [facility] Last Admin: 10/29/17 22:45 Dose: 10 mg Famotidine (Pepcid) 20 mg PO DAILY [facility] Last Admin: 10/30/17 09:16 Dose: 20 mg Fenofibrate (Tricor) 145 mg PO DAILY [facility] Last Admin: 10/30/17 09:16 Dose: 145 mg Glucagon (Glucagon) 1 mg IM PRN PRN PRN Reason: Hypoglycemia Guaifenesin (Robitussin Sf) 200 mg PO Q4H PRN PRN Reason: Cough Heparin Sodium (Porcine) (Heparin) 5,000 units SC BID [facility] Last Admin: 10/30/17 09:16 Dose: 5,000 units Hydralazine HCl (Apresoline) 10 mg SLOW IVP Q4H PRN PRN Reason: Systolic BP > 180 Dextrose/Water (D5w) 1,000 mls @ 0 mls/hr IV .Q0M PRN; As Directed PRN Reason: Hypoglycemia Levofloxacin 500 mg/ Device 100 mls @ 100 mls/hr IVPB 0800 [facility] Last Admin: 10/30/17 09:18 Dose: 100 mls Sodium Chloride (Normal Saline 0.9%) 1,000 mls @ 70 mls/hr IV .[id number] [facility] Last Admin: 10/30/17 06:26 Dose: Not Given Meropenem 1 gm/ Sterile Water 20 mls @ 240 mls/hr SLOW IVP 0000,0800,1600 [facility] Last Admin: 10/30/17 09:15 Dose: 20 mls Insulin Human Lispro (Humalog) 0 units SC .MODERATE SLIDING SC PRN PRN Reason: Moderate Correctional Scale Last Admin: 10/30/17 07:09 Dose: 4 unit Insulin Human Lispro (Humalog) 0 units SC .BEDTIME SLIDING SC PRN PRN Reason: Bedtime Correctional Scale Last Admin: 10/28/17 22:16 Dose: 2 unit Loperamide HCl (Imodium) 2 mg PO PRN PRN PRN Reason: Diarrhea/Loose Stools Loratadine (Claritin) 10 mg PO DAILYPRN PRN PRN Reason: Sinus Symptoms Magnesium Hydroxide (Milk Of Magnesium) 30 ml PO DAILYPRN PRN PRN Reason: Constipation Melatonin (Melatonin) 3 mg PO [facility] Last Admin: 10/29/17 22:45 Dose: 3 mg Metoprolol Tartrate (Lopressor) 12.5 mg PO BID [facility] Last Admin: 10/30/17 09:17 Dose: 12.5 mg Mineral Oil/White Petrolatum (Eucerin Cream) 0 gm TOP BIDPRN PRN PRN Reason: Dry Skin Niacin (Niacin) 1,000 mg PO [facility] Last Admin: 10/29/17 22:46 Dose: 1,000 mg Ondansetron HCl (Zofran Odt) 4 mg PO Q6H PRN PRN Reason: Nausea/Vomiting Ondansetron HCl (Zofran) 4 mg IVP Q6H PRN PRN Reason: Nausea/Vomiting Phenol (Chloraseptic [place] 180 Ml Bot) 0 ml PO PRN PRN PRN Reason: Sore Throat Polyethylene Glycol (Miralax) 17 gm PO DAILY [facility] Last Admin: 10/30/17 09:14 Dose: 17 gm Risperidone (Risperidone) 2 mg PO BID [facility] Last Admin: 10/30/17 09:17 Dose: 2 mg Senna (Senokot) 2 tab PO HSPRN PRN PRN Reason: Constipation Simethicone (Mylicon Chewable) 80 mg PO Q6H PRN PRN Reason: Gas Pain Sodium Chloride ([place] Nasal [place] 0.65%) 0 ml EA NARE QIDPRN PRN PRN Reason: Nasal Congestion Zolpidem Tartrate (Ambien) 5 mg PO HSPRN PRN PRN Reason: Insomnia
[2017-10-30] MEDS: Donepezil HCl 10 MG TAB PO SCH (20:26)
[2017-10-30] MEDS: Melatonin 3 MG TAB PO SCH (20:27)
[2017-10-30] MEDS: Niacin 500 MG TAB PO SCH (20:27)
[2017-10-31] MEDS: HumaLOG 300 UNITS/3 ML VIAL SC PRN ×2 (06:37→11:34)
[2017-10-31] MEDS: Sodium Chloride 0.9% 1,000 ML IV SCH (06:37)
[2017-10-31 08:31] LABS: Hemoglobin 10.3 g/dL (14.0-18.0); Mean Corpuscular HGB CONC 32.9 g/dL (32.0-36.0); Mean Corpuscular Hemoglobin 30.9 pg (27.0-31.0); Mean Corpuscular Volume 93.9 fl (80.0-94.0); Mean Platelet Volume 6.4 fL (7.4-10.4); Platelet Count 309 thou/uL (130-400); RBC Distribution Width 11.6 % (11.5-14.5); Red Blood Cell (RBC) Count 3.32 mill/uL (4.70-6.10)
[2017-10-31] MEDS: Ubidecarenone 50 MG CAP PO SCH (08:46)
[2017-10-31] MEDS: risperiDONE 1 MG TAB PO SCH (08:46)
[2017-10-31] MEDS: Famotidine 20 MG TAB PO SCH (08:46)
[2017-10-31] MEDS: Fenofibrate Nanocrystallized 145 MG TAB PO SCH (08:46)
[2017-10-31] MEDS: Metoprolol Tartrate 25 MG TAB PO SCH (08:46)
[2017-10-31] MEDS: Meropenem 1 GM in Sterile Water 20 ML SLOW IVP SCH (08:47)
[2017-10-31 08:48] LABS: Anion Gap 18 mmol/L (10-20); BUN (Urea Nitrogen) 10 mg/dL (8.4-25.7); Calc. Creatinine Clearance 112 mL/min (70-130); Calcium 9.3 mg/dL (7.8-10.44); Carbon Dioxide 19 mmol/L (23-31); Chloride 102 mmol/L (98-107); Estimated GFR-MDRD 77; Glucose 278 mg/dL (80-115); Potassium 4.6 mmol/L (3.5-5.1); Sodium 134 mmol/L (136-145)
[2017-10-31] MEDS: Polyethylene Glycol 3350 17 GM Packet PO SCH (08:48)
[2017-10-31] MEDS: Heparin 5,000 UNITS/ML VIAL SC SCH (08:48)
--- NOTE | 2017-10-31 10:08 | PDOC.PN ---
- Subjective Encounter Start Date: 10/31/17 Encounter Start Time: 07:30 Patient seen and examined. No new complaints. No overnight events - Objective Resuscitation Status: Resuscitation Status FULL:Full Resuscitation MAR Reviewed: Yes Vital Signs & Weight: Vital Signs (12 hours) Temp Pulse Resp BP Pulse Ox 10/31/17 08:00 98.4 F 95 20 10/31/17 07:57 98.4 F 95 20 151/70 H 97 10/31/17 04:00 98.3 F 100 18 111/63 95 Weight Weight 268 lb 15.423 oz I&O: 10/30/17 10/31/17 11/01/17 06:59 06:59 06:59 Intake Total 1010 2790 Output Total 700 950 Balance 310 1840 Result Diagrams: 10/31/17 08:12 10/31/17 08:12 Additional Labs: Accuchecks 10/31/17 10/30/17 10/30/17 04:51 20:25 17:14 POC Glucose 252 H 331 H 323 H 10/30/17 11:09 POC Glucose 250 H Phys Exam - Physical Examination Constitutional: NAD HEENT: PERRLA, moist MMs, sclera anicteric Neck: no JVD, supple Respiratory: no wheezing, no rales, no rhonchi Cardiovascular: RRR, no significant murmur, no rub Gastrointestinal: soft, non-tender, no distention, positive bowel sounds colostomy+ Musculoskeletal: no edema, pulses present Neurological: moves all 4 limbs Psychiatric: normal affect Skin: normal turgor Dx/Plan (1) Acute kidney failure Status: Acute (2) Sepsis with acute organ dysfunction Code(s): A41.9 - SEPSIS, UNSPECIFIED ORGANISM; R65.20 - SEVERE SEPSIS WITHOUT SEPTIC SHOCK Status: Acute (3) UTI (urinary tract infection) Status: Acute (4) Colostomy in place Code(s): Z93.3 - COLOSTOMY STATUS Status: Chronic (5) Diabetes type 2, controlled Code(s): E11.9 - TYPE 2 DIABETES MELLITUS WITHOUT COMPLICATIONS Status: Chronic (6) Dyslipidemia Code(s): E78.5 - HYPERLIPIDEMIA, UNSPECIFIED Status: Chronic (7) Schizophrenia Code(s): F20.9 - SCHIZOPHRENIA, UNSPECIFIED Status: Chronic (8) Gross hematuria Status: Acute - Plan cont 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 . Review of Systems - Review of Systems Other: not reliable due to dementia - Medications/Allergies Allergies/Adverse Reactions: Allergies Allergy/AdvReac Type Severity Reaction Status Date / Time Penicillins Allergy Verified 10/15/17 10:21 Medications: Current Medications Acetaminophen (Tylenol) 650 mg PO Q4H PRN PRN Reason: Headache/Fever or Pain Hydrocodone Bitart/Acetaminophen ([place] 5/325) 1 tab PO Q4H PRN PRN Reason: Moderate Pain (4-6) Last Admin: 10/30/17 06:26 Dose: 1 tab Al Hydroxide/Mg Hydroxide (Maalox) 30 ml PO Q6H PRN PRN Reason: Heartburn or Indigestion Albuterol/Ipratropium (Duoneb) 3 ml NEB Q4H PRN PRN Reason: SOB &/or Wheezing Artificial Tears (Tears Naturale) 0 drop EA EYE PRN PRN PRN Reason: Dry Eyes Aspirin (Aspirin Chewable) 81 mg PO DAILY [facility] Last Admin: 10/31/17 08:46 Dose: 81 mg Benzonatate (Tessalon) 100 mg PO Q4H PRN PRN Reason: Cough Cholecalciferol (Vitamin D3) 2,000 units PO DAILY [facility] Last Admin: 10/31/17 08:46 Dose: 2,000 units Coenzyme Q10 (Coenzyme Q10) 100 mg PO DAILY [facility] Last Admin: 10/31/17 08:46 Dose: 100 mg Dextrose/Water (Dextrose 50%) 25 gm SLOW IVP PRN PRN PRN Reason: Hypoglycemia Donepezil HCl (Aricept) 10 mg PO HS [facility] Last Admin: 10/30/17 20:26 Dose: 10 mg Famotidine (Pepcid) 20 mg PO DAILY [facility] Last Admin: 10/31/17 08:46 Dose: 20 mg Fenofibrate (Tricor) 145 mg PO DAILY [facility] Last Admin: 10/31/17 08:46 Dose: 145 mg Glucagon (Glucagon) 1 mg IM PRN PRN PRN Reason: Hypoglycemia Guaifenesin (Robitussin Sf) 200 mg PO Q4H PRN PRN Reason: Cough Heparin Sodium (Porcine) (Heparin) 5,000 units SC BID [facility] Last Admin: 10/31/17 08:48 Dose: 5,000 units Hydralazine HCl (Apresoline) 10 mg SLOW IVP Q4H PRN PRN Reason: Systolic BP > 180 Dextrose/Water (D5w) 1,000 mls @ 0 mls/hr IV .Q0M PRN; As Directed PRN Reason: Hypoglycemia Meropenem 1 gm/ Sterile Water 20 mls @ 240 mls/hr SLOW IVP 0000,0800,1600 [facility] Last Admin: 10/31/17 08:47 Dose: 20 mls Insulin Human Lispro (Humalog) 0 units SC .MODERATE SLIDING SC PRN PRN Reason: Moderate Correctional Scale Last Admin: 10/31/17 06:37 Dose: 6 unit Insulin Human Lispro (Humalog) 0 units SC .BEDTIME SLIDING SC PRN PRN Reason: Bedtime Correctional Scale Last Admin: 10/30/17 20:28 Dose: 4 unit Loperamide HCl (Imodium) 2 mg PO PRN PRN PRN Reason: Diarrhea/Loose Stools Loratadine (Claritin) 10 mg PO DAILYPRN PRN PRN Reason: Sinus Symptoms Magnesium Hydroxide (Milk Of Magnesium) 30 ml PO DAILYPRN PRN PRN Reason: Constipation Melatonin (Melatonin) 3 mg PO [facility] Last Admin: 10/30/17 20:27 Dose: 3 mg Metoprolol Tartrate (Lopressor) 12.5 mg PO BID [facility] Last Admin: 10/31/17 08:46 Dose: 12.5 mg Mineral Oil/White Petrolatum (Eucerin Cream) 0 gm TOP BIDPRN PRN PRN Reason: Dry Skin Niacin (Niacin) 1,000 mg PO [facility] Last Admin: 10/30/17 20:27 Dose: 1,000 mg Ondansetron HCl (Zofran Odt) 4 mg PO Q6H PRN PRN Reason: Nausea/Vomiting Ondansetron HCl (Zofran) 4 mg IVP Q6H PRN PRN Reason: Nausea/Vomiting Phenol (Chloraseptic [place] 180 Ml Bot) 0 ml PO PRN PRN PRN Reason: Sore Throat Polyethylene Glycol (Miralax) 17 gm PO DAILY [facility] Last Admin: 10/31/17 08:48 Dose: 17 gm Risperidone (Risperidone) 2 mg PO BID [facility] Last Admin: 10/31/17 08:46 Dose: 2 mg Senna (Senokot) 2 tab PO HSPRN PRN PRN Reason: Constipation Simethicone (Mylicon Chewable) 80 mg PO Q6H PRN PRN Reason: Gas Pain Sodium Chloride ([place] Nasal [place] 0.65%) 0 ml EA NARE QIDPRN PRN PRN Reason: Nasal Congestion Zolpidem Tartrate (Ambien) 5 mg PO HSPRN PRN PRN Reason: Insomnia
[2017-10-31 10:50] LABS: Band 1 % (5-11); Eosinophils 6 % (0-10); Lymphocytes 15 % (21-51); MDiff Complete? YES; Monocytes 8 % (0-10); Neutrophil 69 % (42-75); Polychromasia SLIGHT = 2-3 cells (100X) (0-2/hpf); Reactive Lymphocytes 1 % (0-10)
[2017-10-31 11:34] VITALS: BP 107/66; TEMP 98.1
--- NOTE | 2017-10-31 12:15 | DIS ---
PRIMARY CARE PHYSICIAN: Dr. Hurst. DATE OF ADMISSION: 10/27/2017 DATE OF DISCHARGE: 10/31/2017 DISCHARGE DISPOSITION: [facility]. PRIMARY DISCHARGE DIAGNOSES: 1. Acute kidney failure, improved. 2. Gross hematuria, resolved. 3. Sepsis with acute organ dysfunction. 4. Urinary tract infection due to Proteus mirabilis. SECONDARY DISCHARGE DIAGNOSES: Schizophrenia, dyslipidemia, diabetes type 2, colostomy in place, and obesity with BMI 42. PRIMARY PROCEDURE/OPERATION: None. RADIOLOGICAL INVESTIGATION: Abdomen and pelvis CT scan was unremarkable. SIGNIFICANT LABORATORY DATA: WBC 13.0, hemoglobin 10.3, platelets 309. Sodium 134, potassium 4.6, B UN 10, creatinine 1.15, calcium 9.3. Urine culture grew Proteus mirabilis. Blood culture was negati ve. DISCHARGE MEDICATIONS: Aspirin 81 mg p.o. daily, nullo 100 mg p.o. b.i.d., vitamin D3 2000 units p.o . daily, Aricept 10 mg p.o. at bedtime, Tricor 145 mg p.o. daily, Lasix 20 mg p.o. daily, NovoLog ins ulin 32 units subcu t.i.d., Toujeo insulin 145 units subcutaneous daily, Humulin R insulin t.i.d. as per sliding scale, lisinopril 5 mg p.o. daily, Milk of Magnesia 30 mL p.o. daily p.r.n., melatonin 3 mg p.o. at bedtime, Lopressor 12.5 mg p.o. b.i.d., niacin 100 mg p.o. at bedtime, MiraLax 17 grams p. o. daily, potassium chloride 20 mEq p.o. b.i.d., risperidone 2 mg p.o. b.i.d., simethicone 80 mg q.6 hourly p.r.n., Bactrim DS 1 tablet twice daily for 10 days, and Coenzyme Q10 at 100 mg p.o. daily. CONTRAINDICATIONS: None. CODE STATUS: FULL CODE. INPATIENT CONSULTANTS: None. ALLERGIES: PENICILLIN. DISCHARGE PLAN: Post hospital, the patient is discharged to assisted. HOSPITAL COURSE: The patient is a 62-year-old male, who was admitted by me. Please see my H&P for f urther details. This patient lives in assisted and he has underlying schizophrenia and dementia. He was not able to provide a good history because of his underlying cognitive status, but as per [facility] report, the patient was having low blood pressure and he was tachycardic and that is why nathanael de la o suspected sepsis and send him to the ER for evaluation. In the emergency room, he was found with a cute kidney failure. He had a positive influenza A during recent hospitalization and he finished [facility] iflu treatment. At this time, patient was treated for acute kidney failure with IV fluid. His urina ry tract infection was treated with meropenem and Levaquin. Based on culture and sensitivity, Levaqu in was discontinued and meropenem was taking care of this patient's UTI. Oral antibiotic therapy, we changed to Bactrim based on culture and sensitivity result. The patient's bandemia and sepsis compl etely improving. The patient is seen and examined at bedside today. At this point, by the time of discharge, his seps is resolved. He is doing very well, afebrile, tolerating p.o. well on room air. He had gross hematu zachery, which was also resolved. We discontinued the Del Castillo catheter while in hospital. The patient is seen and examined at bedside today. Please see my progress note from today for furthe r detail. Paper work for discharge done. Discharge medication reconciliation done. Total time spent to coordinate this discharge is more than 30 minutes.
== END 2017-10-31 12:48 | DRG 872 ==
LOC: ERS 23:59 → T4-B 10-27 01:20
PROVIDERS: ADMIT Internal Medicine Infectious Disease; ATTEND Internal Medicine Infectious Disease
DX: A41.9 Sepsis, unspecified organism (principal); N17.9 Acute kidney failure, unspecified; E66.01 Morbid (severe) obesity due to excess calories; F20.9 Schizophrenia, unspecified; G30.9 Alzheimer's disease, unspecified; Z68.41 Body mass index [BMI] 40.0-44.9, adult; R13.10 Dysphagia, unspecified; F02.80 Dementia in other diseases classified elsewhere, unspecified severity, without behavioral disturbance, psychotic disturbance, mood disturbance, and anxiety; N39.0 Urinary tract infection, site not specified; R65.20 Severe sepsis without septic shock; E11.9 Type 2 diabetes mellitus without complications; E78.5 Hyperlipidemia, unspecified; K21.9 Gastro-esophageal reflux disease without esophagitis; I10 Essential (primary) hypertension; Z79.82 Long term (current) use of aspirin; Z79.4 Long term (current) use of insulin; Z88.0 Allergy status to penicillin; Z93.3 Colostomy status; R31.0 Gross hematuria; B96.4 Proteus (mirabilis) (morganii) as the cause of diseases classified elsewhere; F10.21 Alcohol dependence, in remission; F41.9 Anxiety disorder, unspecified; Z91.81 History of falling; G31.84 Mild cognitive impairment of uncertain or unknown etiology
CPT/HCPCS: 36415; 36416; 74176; 80048; 80053; 85025; 96360; A4216; G8978-GP-CL; G8979-GP-CJ; G8987-GO-CL; G8988-GO-CK; J1644; J1956; J2185

== ENCOUNTER 2020-11-03 16:58 | Inpatient (IN) | payer MEDICARE, MEDICAID ==
--- NOTE | 2020-11-03 20:07 | PDOC.HHP ---
Hospitalist HPI - History of Present Illness Acute encephalopathy, hypoglycemia History of Present Illness: This is a 65-year-old male patient with a history of diabetes with gastroparesis, dementia, bowel dilation, hypertension, ESRD on dialysis who was transferred from [facility] on account of acute delirium and hypoglycemia in the setting of COVID-19 infection. Patient tested positive for Covid at the nursing facility about a week ago Patient is a resident of [facility]. He was noted to be hypoxic in the 80s and EMS was activated. On EMS arrival it was noted that he was saturating at 92 however his blood sugar was too low to detect. He was resuscitated with D50 and transported to [place]. At presentation the medicine he still remained hypoglycemic and also started on 150 mils per hour D5. He was noted to be delirious. His labs showed mild hyponatremia of 147, hyperkalemia of 5.3, creatinine 1.41 from a baseline of 1.15 couple of years ago. Glucose was at 168, lactic acid was 2.3 CRP was 18. His chest x-ray showed increasing perihilar interstitial densities concerning for the pneumonia or pulmonary edema. He was started on azithromycin and Rocephin and sent here for higher level care on account of delirium. At the time of my evaluation, patient was slightly confused but answers some questions. He denied any complaints. Of note patient has ESRD as part of his history but has no dialysis access. His GFR on BMP today 61. On presentation here his BP was 138/72, pulse 109, respiratory rate 35, saturating 100% on 2 L however subsequently tolerated 95 200 on room air Hospitalist ROS - Review of Systems ROS unobtainable: due to mental status Hospitalist History - Past Medical History Other Medical History: Dementia, CKD, hypertension, diabetes with gastroparesis - Past Surgical History Other Surgical History: Colostomy - Family History Family History: reports: no pertinent history - Social History Smoking Status: Unknown if ever smoked Living Situation: [facility] - Exam General - other findings: Awake however confused. Eye: PERRL, anicteric sclera ENT: normocephalic atraumatic Heart: RRR, no murmur, no gallops, no rubs Respiratory: CTAB, no wheezes, no ronchi Gastrointestinal: soft, non-tender, non-distended, normal bowel sounds Extremities: no cyanosis, no clubbing, no edema Neurological: cranial nerve grossly intact Neurological - other findings: Intermittent tremors of right upper limb. Moves all limbs continuously Psychiatric - other findings: ANO x2 Hospitalist H&P A/P - Plan Plan: This is a 65-year-old male patient with a history of dementia, diabetes mellitus, CKD a resident of [facility] who was transferred from [place] on account of delirium, hypoglycemia in the setting of COVID-19 infection. Acute encephalopathy Likely secondary to hypoglycemia and sepsis Sugar currently normal rangewe will continue monitoring Due to Infections and monitor overnight. Sepsis In the setting of Covid elevated lactate, tachypnea, tachycardia altered mental status Cannot rule out pneumoniawe will continue azithromycin and ceftriaxone Not received any fluidswe will give 1 L bolus and observe and repeat as needed. Will hold 30 mils per KG on account of his respiratory status. Trend lactate Follow-up on culture Pneumonia Possibly CAP/Covid Continue antibiotics as above As needed oxygen Acute hypoxic respiratory failureresolved Noted prior to presentation We will keep observing Hypoglycemia Corrected Monitor glucose Diabetes mellitus Correctional insulin Monitor glucose Dementia Resume home medication. Next VT prophylaxisLovenox CODE STATUSfull
[2020-11-03] MEDS ORDERED: Sodium Chloride 0.9% 1,000 ML IV SCH (20:30)
[2020-11-03 22:14] LABS: Anion Gap 19 mmol/L (10-20); BUN (Urea Nitrogen) 31 mg/dL (8.4-25.7); Calc. Creatinine Clearance 0 mL/min (70-130); Calcium 8.6 mg/dL (7.8-10.44); Carbon Dioxide 26 mmol/L (23-31); Chloride 106 mmol/L (98-107); Potassium 4.3 mmol/L (3.5-5.1); Sodium 147 mmol/L (136-145)
[2020-11-03 22:34] LABS: Glucose 20 mg/dL (80-115)
[2020-11-03] MEDS ORDERED: Dextrose 50% Abboject 50 ML SYRINGE ONE (22:35)
[2020-11-04 00:51] LABS: Lactic Acid 2.2 mmol/L (0.5-2.2)
[2020-11-04] MEDS: Dextrose 5% in Water 1,000 ML IV PRN ×2 (01:16→13:01)
[2020-11-04] MEDS: Dextrose 50% Abboject 50 ML SYRINGE SLOW IVP PRN ×2 (05:34→09:12)
--- NOTE | 2020-11-04 08:29 | RAD ---
EXAM: CHEST ONE VIEW HISTORY: Possible aspiration after drinking liquid. COMPARISON: 11/03/2020 FINDINGS: The cardiac silhouette and pulmonary vasculature are within normal limits. There are increased bilate ral perihilar interstitial opacities which have mildly increased on the right compared to prior study. No consolidation or pleural fluid is seen. No other interval change. IMPRESSION: Bilateral perihilar interstitial opacities which may be related to pulmonary edema versus infectious process.
[2020-11-04] MEDS ORDERED: REMDESIVIR (EUA) 200 MG in Sodium Chloride 0.9% 250 ML 210 ML IV SCH (09:00)
[2020-11-04] MEDS ORDERED: Dexamethasone 6 MG in Sodium Chloride 0.9% 50 ML IVPB SCH (09:00)
[2020-11-04] MEDS ORDERED: Cholecalciferol (Vitamin D3) 400 UNITS TAB PO SCH (09:00)
[2020-11-04] MEDS ORDERED: FLU VACC QS2020-21(65YR UP)/PF 240 MCG/0.7 ML SYRINGE IM ONE (09:00)
[2020-11-04] MEDS: Ascorbic Acid 500 mg Chewable Tablet PO SCH (10:40)
[2020-11-04] MEDS: Zinc Sulfate 220 MG CAP PO SCH (10:40)
[2020-11-04] MEDS: Dexamethasone 4 mg/ml Vial SLOW IVP SCH (10:41)
[2020-11-04] MEDS: Enoxaparin Sodium 40 MG/0.4 ML SYRINGE SC SCH (10:41)
[2020-11-04] MEDS ORDERED: Furosemide 40 MG/4 ML VIAL SLOW IVP SCH (12:45)
[2020-11-04 14:52] LABS: Mean Corpuscular HGB CONC 32.7 g/dL (32.0-36.0); Mean Corpuscular Hemoglobin 31.4 pg (27.0-31.0); Mean Platelet Volume 7.7 fL (7.4-10.4); Platelet Count 206 thou/uL (130-400); RBC Distribution Width 13.4 % (11.5-14.5); Red Blood Cell (RBC) Count 4.15 mill/uL (4.70-6.10); White Blood Cell (WBC) Count 12.8 thou/uL (4.8-10.8)
[2020-11-04 15:21] LABS: ALT (SGPT) 22 U/L (8-55); AST (SGOT) 26 U/L (5-34); Albumin 2.6 g/dL (3.4-4.8); Alkaline Phosphatase 69 U/L (40-110); Band 8 % (5-11); Bilirubin, Direct 0.2 mg/dL (0.1-0.3); Bilirubin, Total 0.4 mg/dL (0.2-1.2); Lymphocytes 5 % (21-51); MDiff Complete? YES; Monocytes 3 % (0-10); Neutrophil 84 % (42-75); Platelet Morphology Comment Appears Adequate; Polychromasia SLIGHT = 2-3 cells (100X) (0-2/hpf); Protein, Total 6.9 g/dL (5.8-8.1)
--- NOTE | 2020-11-04 16:16 | PDOC.HOSPP ---
- Subjective Encounter Date: 11/04/20 Encounter Time: 09:30 Subjective: Patient seen for follow-up regarding acute metabolic encephalopathy. He is not answering questions, could not complete review of systems. - Objective Vital Signs & Weight: Vital Signs (12 hours) Temp Pulse Resp BP Pulse Ox 11/04/20 08:00 96 11/04/20 07:37 97.4 F L 89 18 140/62 99 Weight Admit Weight 209 lb 4.8 oz Weight 209 lb 12.035 oz I&O: 11/03/20 11/04/20 11/05/20 06:59 06:59 06:59 Intake Total 1700 Balance 1700 Result Diagrams: 11/04/20 14:41 11/03/20 21:26 Additional Labs: Accuchecks 11/04/20 11/04/20 11/04/20 14:00 12:03 10:05 POC Glucose 76 69 L 74 11/04/20 11/04/20 11/04/20 09:02 05:44 05:30 POC Glucose 39 L* 181 H 42 L* 11/04/20 11/03/20 11/03/20 01:48 22:46 18:23 POC Glucose 133 H 146 H 174 H Labs and MAR reviewed by me Hospitalist ROS - Review of Systems ROS unobtainable: due to mental status - Medication Medications: Active Medications Generic Name Dose Route Start Last Admin Trade Name Freq PRN Reason Stop Dose Admin Ascorbic Acid 1,000 mg 11/04/20 09:00 11/04/20 10:40 Ascorbic Acid 500 Mg Chewable Tablet PO 1,000 mg DAILY SHERRI Administration Dexamethasone 6 mg 11/04/20 09:00 11/04/20 10:41 Dexamethasone 4 Mg/Ml Vial SLOW IVP 6 mg DAILY SHERRI Administration Dextrose/Water 25 gm 11/03/20 19:43 11/04/20 09:12 Dextrose 50% Abboject 50 Ml Syringe SLOW IVP 25 gm PRN PRN Administration Hypoglycemia Enoxaparin Sodium 40 mg 11/04/20 09:00 11/04/20 10:41 Enoxaparin Sodium 40 Mg/0.4 Ml Syringe SC 40 mg 0900 SHERRI Administration Dextrose/Water 1,000 mls @ 0 mls/hr 11/03/20 19:43 11/04/20 13:01 D5w IV 1,000 mls .Q0M PRN Administration Hypoglycemia As Directed Zinc Sulfate 220 mg 11/04/20 09:00 11/04/20 10:40 Zinc Sulfate 220 Mg Cap PO 220 mg DAILY SHERRI Administration - Exam Eye: anicteric sclera ENT: normocephalic atraumatic Neck: supple Heart: RRR Respiratory: CTAB Gastrointestinal: soft, non-tender Skin: no rashes Psychiatric - other findings: Unable to assess Hosp A/P - Plan -Assessment/plan Acute encephalopathy Likely secondary to hypoglycemia and sepsis Continue to monitor. Sepsis Most likely secondary to Covid pneumonia. Continue IV fluids. COVID Pneumonia Patient has been started on remdesivir. Acute hypoxic respiratory failureresolved Continue to monitor Hypoglycemia Corrected Monitor glucose Dementia Resume home medication.
[2020-11-04] MEDS: Carbidopa/Levodopa 10-100 mg Tablet PO SCH ×2 (17:07→20:52)
[2020-11-04] MEDS: Latanoprost 0.005% Ophth Soln 2.5 ml Bottle EA EYE SCH (20:50)
[2020-11-04] MEDS: Furosemide 40 MG TAB PO SCH (20:52)
[2020-11-04] MEDS: Divalproex Sodium 250 MG (DR) TAB PO SCH (20:52)
[2020-11-04] MEDS: Atorvastatin Calcium 40 MG TAB PO SCH (20:52)
[2020-11-04] MEDS: Melatonin 3 MG TAB PO SCH (20:52)
[2020-11-04] MEDS ORDERED: Metoprolol Tartrate 25 MG TAB PO SCH (21:00)
[2020-11-05] MEDS: Dextrose 50% Abboject 50 ML SYRINGE SLOW IVP PRN (05:53)
[2020-11-05] MEDS: Furosemide 40 MG TAB PO SCH ×2 (08:27→20:23)
[2020-11-05] MEDS: Aspirin Chewable 81 MG TAB PO SCH (08:27)
[2020-11-05] MEDS: Donepezil HCl 10 MG TAB PO SCH (08:28)
[2020-11-05] MEDS: Dexamethasone 4 mg/ml Vial SLOW IVP SCH (08:28)
[2020-11-05] MEDS: Carbidopa/Levodopa 10-100 mg Tablet PO SCH ×3 (08:28→20:23)
[2020-11-05] MEDS: Lisinopril 5 MG TAB PO SCH (08:28)
[2020-11-05] MEDS: Cholecalciferol 1,000 UNITS (25 MCG) TAB PO SCH (08:28)
[2020-11-05] MEDS: Divalproex Sodium 250 MG (DR) TAB PO SCH ×2 (08:29→20:23)
[2020-11-05] MEDS: Ascorbic Acid 500 mg Chewable Tablet PO SCH (08:29)
[2020-11-05] MEDS: Fenofibrate Nanocrystallized 145 MG TAB PO SCH (08:29)
[2020-11-05] MEDS: Enoxaparin Sodium 40 MG/0.4 ML SYRINGE SC SCH (08:29)
[2020-11-05] MEDS: Ubidecarenone 50 MG CAP PO SCH (08:32)
[2020-11-05] MEDS ORDERED: REMDESIVIR (EUA) 100 MG in Sodium Chloride 0.9% 250 ML 230 ML IV SCH (09:00)
[2020-11-05] MEDS: Zinc Sulfate 220 MG CAP PO SCH (11:36)
[2020-11-05] MEDS: HumaLOG 300 UNITS/3 ML VIAL SC PRN (11:50)
[2020-11-05 13:37] VITALS: BMI 28.5
--- NOTE | 2020-11-05 14:17 | PDOC.HOSPP ---
- Subjective Encounter Date: 11/05/20 Encounter Time: 10:00 Subjective: Patient seen in follow-up for acute encephalopathy he is not answering questions, could not complete review of systems. - Objective Vital Signs & Weight: Vital Signs (12 hours) Temp Pulse Resp BP BP Pulse Ox 11/05/20 11:29 97.5 F L 83 17 139/68 97 11/05/20 08:28 73 11/05/20 08:00 96 11/05/20 07:20 97.5 F L 73 18 138/72 96 11/05/20 06:06 97.4 F L 75 18 133/70 98 Weight Admit Weight 209 lb 4.8 oz Weight 210 lb 9.6 oz I&O: 11/04/20 11/05/20 11/06/20 06:59 06:59 06:59 Intake Total 1700 2141 Balance 1700 2141 Result Diagrams: 11/04/20 14:41 11/03/20 21:26 Additional Labs: Accuchecks 11/05/20 11/05/20 11/05/20 11:32 05:29 02:13 POC Glucose 230 H 38 L* 104 H 11/04/20 11/04/20 11/04/20 19:48 18:47 16:07 POC Glucose 158 H 166 H 131 H 11/03/20 22:35 POC Glucose Less than 30 L* I reviewed patient's labs and MAR Hospitalist ROS - Review of Systems ROS unobtainable: due to mental status - Medication Medications: Active Medications Generic Name Dose Route Start Last Admin Trade Name Comfort PRN Reason Stop Dose Admin Ascorbic Acid 1,000 mg 11/04/20 09:00 11/05/20 08:29 Ascorbic Acid 500 Mg Chewable Tablet PO 1,000 mg DAILY SHERRI Administration Aspirin 81 mg 11/05/20 09:00 11/05/20 08:27 Aspirin Chewable 81 Mg Tab PO 81 mg DAILY SHERRI Administration Atorvastatin Calcium 40 mg 11/04/20 21:00 11/04/20 20:52 Atorvastatin Calcium 40 Mg Tab PO 40 mg 2100 SHERRI Administration Carbidopa/Levodopa 1 tab 11/04/20 15:00 11/05/20 08:28 Carbidopa/Levodopa 10-100 Mg Tablet PO 1 tab TID SHERRI Administration Cholecalciferol 2,000 units 11/05/20 09:00 11/05/20 08:28 Cholecalciferol 1,000 Units (25 Mcg) Tab PO 2,000 units DAILY SHERRI Administration Coenzyme Q10 50 mg 11/05/20 09:00 11/05/20 08:32 Ubidecarenone 50 Mg Cap PO 50 mg DAILY SHERRI Administration Dexamethasone 6 mg 11/04/20 09:00 11/05/20 08:28 Dexamethasone 4 Mg/Ml Vial SLOW IVP 6 mg DAILY SHERRI Administration Dextrose/Water 25 gm 11/03/20 19:43 11/05/20 05:53 Dextrose 50% Abboject 50 Ml Syringe SLOW IVP 25 gm PRN PRN Administration Hypoglycemia Divalproex Sodium 250 mg 11/04/20 21:00 11/05/20 08:29 Divalproex Sodium 250 Mg (Dr) Tab PO 250 mg BID SHERRI Administration Donepezil HCl 10 mg 11/05/20 09:00 11/05/20 08:28 Donepezil Hcl 10 Mg Tab PO 10 mg DAILY SHERRI Administration Enoxaparin Sodium 40 mg 11/04/20 09:00 11/05/20 08:29 Enoxaparin Sodium 40 Mg/0.4 Ml Syringe SC 40 mg 09 SHERRI Administration Fenofibrate 145 mg 11/05/20 09:00 11/05/20 08:29 Fenofibrate Nanocrystallized 145 Mg Tab PO 145 mg DAILY SHERRI Administration Furosemide 60 mg 11/04/20 21:00 11/05/20 08:27 Furosemide 40 Mg Tab PO 60 mg BID SHERRI Administration Dextrose/Water 1,000 mls @ 0 mls/hr 11/03/20 19:43 11/04/20 13:01 D5w IV 1,000 mls .Q0M PRN Administration Hypoglycemia As Directed Insulin Human Lispro 0 units 11/03/20 19:43 11/05/20 11:50 Humalog 300 Units/3 Ml Vial SC 3 unit .MILD SLIDING SCALE PRN Administration Mild Correctional Scale Latanoprost 1 drop 11/04/20 21:00 11/04/20 20:50 Latanoprost 0.005% Ophth Soln 2.5 Ml Bottle EA EYE 1 drop HS SHERRI Administration Lisinopril 5 mg 11/05/20 09:00 11/05/20 08:28 Lisinopril 5 Mg Tab PO 5 mg DAILY SHERRI Administration Melatonin 3 mg 11/04/20 21:00 11/04/20 20:52 Melatonin 3 Mg Tab PO 3 mg HS SHERRI Administration Niacin 1,000 mg 11/04/20 21:00 11/04/20 20:51 Niacin Er 500 Mg Tab PO 1,000 mg HS SHERRI Administration Zinc Sulfate 220 mg 11/04/20 09:00 11/05/20 11:36 Zinc Sulfate 220 Mg Cap PO Not Given DAILY SHERRI - Exam Eye: anicteric sclera Neck: supple Heart: RRR Respiratory: CTAB Gastrointestinal: soft, non-tender Skin: no rashes Psychiatric: normal affect, normal behavior Hosp A/P - Plan -Assessment/plan Acute encephalopathy Likely secondary to hypoglycemia and Covid infection Continue to monitor. Sepsis Most likely secondary to Covid pneumonia. Continue IV fluids. COVID Pneumonia Patient is not hypoxic, has not yet been started on remdesivir for that reason. Acute hypoxic respiratory failureresolved Continue to monitor Hypoglycemia Corrected Monitor glucose Dementia Continue home medication.
[2020-11-05] MEDS: Latanoprost 0.005% Ophth Soln 2.5 ml Bottle EA EYE SCH (20:22)
[2020-11-05] MEDS: Melatonin 3 MG TAB PO SCH (20:23)
[2020-11-05] MEDS: Atorvastatin Calcium 40 MG TAB PO SCH (20:23)
[2020-11-06] MEDS: Dextrose 50% Abboject 50 ML SYRINGE SLOW IVP PRN ×2 (05:23→12:23)
[2020-11-06] MEDS: Dextrose 5% in Water 1,000 ML IV SCH ×2 (06:02→17:56)
[2020-11-06] MEDS: Zinc Sulfate 220 MG CAP PO SCH (08:07)
[2020-11-06] MEDS: Ascorbic Acid 500 mg Chewable Tablet PO SCH (08:07)
[2020-11-06] MEDS: Divalproex Sodium 250 MG (DR) TAB PO SCH ×2 (08:07→20:22)
[2020-11-06] MEDS: Dexamethasone 4 mg/ml Vial SLOW IVP SCH (08:07)
[2020-11-06] MEDS: Carbidopa/Levodopa 10-100 mg Tablet PO SCH ×3 (08:07→22:13)
[2020-11-06] MEDS: Aspirin Chewable 81 MG TAB PO SCH (08:07)
[2020-11-06] MEDS: Ubidecarenone 50 MG CAP PO SCH (08:08)
[2020-11-06] MEDS: Lisinopril 5 MG TAB PO SCH (08:08)
[2020-11-06] MEDS: Cholecalciferol 1,000 UNITS (25 MCG) TAB PO SCH (08:08)
[2020-11-06] MEDS: Fenofibrate Nanocrystallized 145 MG TAB PO SCH (08:08)
[2020-11-06] MEDS: Furosemide 40 MG TAB PO SCH ×2 (08:08→20:21)
[2020-11-06] MEDS: Donepezil HCl 10 MG TAB PO SCH (08:09)
[2020-11-06] MEDS: Enoxaparin Sodium 40 MG/0.4 ML SYRINGE SC SCH (08:09)
[2020-11-06 11:02] LABS: Hemoglobin 12.2 g/dL (14.0-18.0); Mean Corpuscular HGB CONC 32.3 g/dL (32.0-36.0); Mean Platelet Volume 8.2 fL (7.4-10.4); Platelet Count 195 thou/uL (130-400); RBC Distribution Width 12.8 % (11.5-14.5); Red Blood Cell (RBC) Count 3.93 mill/uL (4.70-6.10); White Blood Cell (WBC) Count 12.9 thou/uL (4.8-10.8)
[2020-11-06 11:15] LABS: Anion Gap 16 mmol/L (10-20); BUN (Urea Nitrogen) 34 mg/dL (8.4-25.7); Calc. Creatinine Clearance 74 mL/min (70-130); Calcium 8.1 mg/dL (7.8-10.44); Carbon Dioxide 25 mmol/L (23-31); Chloride 103 mmol/L (98-107); Glucose 61 mg/dL (80-115); Potassium 4.3 mmol/L (3.5-5.1); Sodium 140 mmol/L (136-145)
[2020-11-06 11:31] LABS: Band 3 % (5-11); Eosinophils 2 % (0-10); Lymphocytes 10 % (21-51); MDiff Complete? YES; Monocytes 3 % (0-10); Neutrophil 82 % (42-75); Platelet Morphology Comment Appears Adequate; RBC Morphology Normal
--- NOTE | 2020-11-06 18:40 | PDOC.HOSPP ---
- Subjective Encounter Date: 11/06/20 Encounter Time: 14:30 Subjective: Patient seen for follow-up for acute metabolic encephalopathy. He is nonverbal, could not complete review of systems. - Objective Vital Signs & Weight: Vital Signs (12 hours) Temp Pulse Resp BP BP Pulse Ox 11/06/20 16:00 98.4 F 67 18 146/73 H 98 11/06/20 09:03 98 11/06/20 08:08 89 119/60 11/06/20 08:00 97.7 F 72 20 119/60 98 Weight Admit Weight 209 lb 4.8 oz Weight 209 lb 14.24 oz I&O: 11/05/20 11/06/20 11/07/20 06:59 06:59 06:59 Intake Total 2141 1140 Balance 2141 1140 Result Diagrams: 11/06/20 10:47 11/06/20 10:47 Additional Labs: Accuchecks 11/06/20 11/06/20 11/05/20 06:06 00:24 21:15 POC Glucose 129 H 103 H 186 H Labs and MAR reviewed by mo Hospitalist ROS - Review of Systems ROS unobtainable: due to mental status - Medication Medications: Active Medications Generic Name Dose Route Start Last Admin Trade Name Freq PRN Reason Stop Dose Admin Ascorbic Acid 1,000 mg 11/04/20 09:00 11/06/20 08:07 Ascorbic Acid 500 Mg Chewable Tablet PO 1,000 mg DAILY SHERRI Administration Aspirin 81 mg 11/05/20 09:00 11/06/20 08:07 Aspirin Chewable 81 Mg Tab PO 81 mg DAILY SHERRI Administration Atorvastatin Calcium 40 mg 11/04/20 21:00 11/05/20 20:23 Atorvastatin Calcium 40 Mg Tab PO 40 mg 2100 SHERRI Administration Carbidopa/Levodopa 1 tab 11/04/20 15:00 11/06/20 14:11 Carbidopa/Levodopa 10-100 Mg Tablet PO 1 tab TID SHERRI Administration Cholecalciferol 2,000 units 11/05/20 09:00 11/06/20 08:08 Cholecalciferol 1,000 Units (25 Mcg) Tab PO 2,000 units DAILY SHERRI Administration Coenzyme Q10 50 mg 11/05/20 09:00 11/06/20 08:08 Ubidecarenone 50 Mg Cap PO 50 mg DAILY SHERRI Administration Dexamethasone 6 mg 11/04/20 09:00 11/06/20 08:07 Dexamethasone 4 Mg/Ml Vial SLOW IVP 6 mg DAILY SHERRI Administration Dextrose/Water 25 gm 11/03/20 19:43 11/06/20 12:23 Dextrose 50% Abboject 50 Ml Syringe SLOW IVP 25 gm PRN PRN Administration Hypoglycemia Divalproex Sodium 250 mg 11/04/20 21:00 11/06/20 08:07 Divalproex Sodium 250 Mg (Dr) Tab PO 250 mg BID SHERRI Administration Donepezil HCl 10 mg 11/05/20 09:00 11/06/20 08:09 Donepezil Hcl 10 Mg Tab PO 10 mg DAILY SHERRI Administration Enoxaparin Sodium 40 mg 11/04/20 09:00 11/06/20 08:09 Enoxaparin Sodium 40 Mg/0.4 Ml Syringe SC 40 mg 0900 SHERRI Administration Fenofibrate 145 mg 11/05/20 09:00 11/06/20 08:08 Fenofibrate Nanocrystallized 145 Mg Tab PO 145 mg DAILY SHERRI Administration Furosemide 60 mg 11/04/20 21:00 11/06/20 08:08 Furosemide 40 Mg Tab PO 60 mg BID SHERRI Administration Dextrose/Water 1,000 mls @ 0 mls/hr 11/03/20 19:43 11/04/20 13:01 D5w IV 1,000 mls .Q0M PRN Administration Hypoglycemia As Directed Dextrose/Water 1,000 mls @ 75 mls/hr 11/06/20 06:00 11/06/20 17:56 D5w IV 1,000 mls .[id number] SHERRI Administration Insulin Human Lispro 0 units 11/03/20 19:43 11/05/20 11:50 Humalog 300 Units/3 Ml Vial SC 3 unit .MILD SLIDING SCALE PRN Administration Mild Correctional Scale Latanoprost 1 drop 11/04/20 21:00 11/05/20 20:22 Latanoprost 0.005% Ophth Soln 2.5 Ml Bottle EA EYE 1 drop HS SHERRI Administration Lisinopril 5 mg 11/05/20 09:00 11/06/20 08:08 Lisinopril 5 Mg Tab PO 5 mg DAILY SHERRI Administration Melatonin 3 mg 11/04/20 21:00 11/05/20 20:23 Melatonin 3 Mg Tab PO 3 mg HS SHERRI Administration Niacin 1,000 mg 11/04/20 21:00 11/05/20 20:33 Niacin Er 500 Mg Tab PO Not Given HS SHERRI Zinc Sulfate 220 mg 11/04/20 09:00 11/06/20 08:07 Zinc Sulfate 220 Mg Cap PO 220 mg DAILY SHERRI Administration - Exam Eye: anicteric sclera ENT: moist mucosa Neck: supple Heart: RRR Respiratory: CTAB Gastrointestinal: non-tender Skin: no rashes Psychiatric - other findings: Unable to assess Hosp A/P - Plan -Assessment/plan Acute encephalopathy Multifactorial etiology, including hypoglycemia and Covid infection. Sepsis Most likely secondary to Covid pneumonia. Continue IV fluids. COVID Pneumonia Stable Acute hypoxic respiratory failureresolved Continue to monitor Hypoglycemia Corrected Monitor glucose Dementia Continue home medication.
[2020-11-06] MEDS: Atorvastatin Calcium 40 MG TAB PO SCH (20:23)
[2020-11-06] MEDS: Latanoprost 0.005% Ophth Soln 2.5 ml Bottle EA EYE SCH (20:25)
[2020-11-06] MEDS: Melatonin 3 MG TAB PO SCH (20:55)
[2020-11-06] MEDS: HumaLOG 300 UNITS/3 ML VIAL SC PRN (21:25)
[2020-11-07 07:23] LABS: Anion Gap 13 mmol/L (10-20); BUN (Urea Nitrogen) 30 mg/dL (8.4-25.7); Calc. Creatinine Clearance 85 mL/min (70-130); Calcium 7.9 mg/dL (7.8-10.44); Carbon Dioxide 29 mmol/L (23-31); Chloride 99 mmol/L (98-107); Potassium 3.9 mmol/L (3.5-5.1); Sodium 137 mmol/L (136-145)
[2020-11-07 07:34] LABS: Glucose 23 mg/dL (80-115)
[2020-11-07] MEDS: Carbidopa/Levodopa 10-100 mg Tablet PO SCH ×3 (08:03→20:19)
[2020-11-07] MEDS: Ascorbic Acid 500 mg Chewable Tablet PO SCH (08:04)
[2020-11-07] MEDS: Furosemide 40 MG TAB PO SCH ×2 (08:04→20:17)
[2020-11-07] MEDS: Ubidecarenone 50 MG CAP PO SCH (08:04)
[2020-11-07] MEDS: Aspirin Chewable 81 MG TAB PO SCH (08:04)
[2020-11-07] MEDS: Divalproex Sodium 250 MG (DR) TAB PO SCH ×2 (08:04→20:18)
[2020-11-07] MEDS: Donepezil HCl 10 MG TAB PO SCH (08:05)
[2020-11-07] MEDS: Cholecalciferol 1,000 UNITS (25 MCG) TAB PO SCH (08:05)
[2020-11-07] MEDS: Fenofibrate Nanocrystallized 145 MG TAB PO SCH (08:05)
[2020-11-07] MEDS: Dexamethasone 4 mg/ml Vial SLOW IVP SCH (08:05)
[2020-11-07] MEDS: Zinc Sulfate 220 MG CAP PO SCH (08:05)
[2020-11-07] MEDS: Dextrose 5% in Water 1,000 ML IV SCH ×3 (08:06→23:04)
[2020-11-07] MEDS: Enoxaparin Sodium 40 MG/0.4 ML SYRINGE SC SCH (08:06)
[2020-11-07] MEDS: Lisinopril 5 MG TAB PO SCH (08:24)
[2020-11-07 08:37] LABS: Band 4 % (5-11); Eosinophils 1 % (0-10); Hemoglobin 12.1 g/dL (14.0-18.0); Lymphocytes 25 % (21-51); MDiff Complete? YES; Mean Corpuscular HGB CONC 32.6 g/dL (32.0-36.0); Mean Corpuscular Hemoglobin 31.2 pg (27.0-31.0); Mean Corpuscular Volume 95.9 fL (78.0-98.0); Mean Platelet Volume 7.9 fL (7.4-10.4); Monocytes 10 % (0-10); Neutrophil 60 % (42-75); Platelet Count 185 thou/uL (130-400); Platelet Morphology Comment Appears Adequate; RBC Distribution Width 12.7 % (11.5-14.5); RBC Morphology Normal; Red Blood Cell (RBC) Count 3.88 mill/uL (4.70-6.10); White Blood Cell (WBC) Count 12.7 thou/uL (4.8-10.8)
--- NOTE | 2020-11-07 19:10 | PDOC.HOSPP ---
- Subjective Encounter Date: 11/07/20 Encounter Time: 13:30 Subjective: Pt seen for followup re: acute metabolic encephalopathy. Waking up but not answering questions, could not complete ROS. - Objective Vital Signs & Weight: Vital Signs (12 hours) Temp Pulse Resp BP BP Pulse Ox 11/07/20 16:00 97.7 F 60 17 130/73 99 11/07/20 12:25 112/65 11/07/20 11:46 97.3 F L 63 16 90/47 L 95 11/07/20 09:05 99 11/07/20 09:02 99/62 99 11/07/20 08:24 89 99/62 11/07/20 08:00 97.4 F L 89 16 93/55 L 94 L Weight Admit Weight 209 lb 4.8 oz Weight 211 lb 1.6 oz I&O: 11/06/20 11/07/20 11/08/20 06:59 06:59 06:59 Intake Total 2280 1620 Balance 2280 1620 Result Diagrams: 11/07/20 06:12 11/07/20 06:12 Additional Labs: Accuchecks 11/07/20 11/07/20 11/07/20 16:32 11:50 06:58 POC Glucose 157 H 83 118 H 11/06/20 20:38 POC Glucose 224 H Reviewed labs/MARs Hospitalist ROS - Review of Systems ROS unobtainable: due to mental status - Medication Medications: Active Medications Generic Name Dose Route Start Last Admin Trade Name Kristopherq PRN Reason Stop Dose Admin Ascorbic Acid 1,000 mg 11/04/20 09:00 11/07/20 08:04 Ascorbic Acid 500 Mg Chewable Tablet PO 1,000 mg DAILY SHERRI Administration Aspirin 81 mg 11/05/20 09:00 11/07/20 08:04 Aspirin Chewable 81 Mg Tab PO 81 mg DAILY SHERRI Administration Atorvastatin Calcium 40 mg 11/04/20 21:00 11/06/20 20:23 Atorvastatin Calcium 40 Mg Tab PO 40 mg 2100 SHERRI Administration Carbidopa/Levodopa 1 tab 11/04/20 15:00 11/07/20 14:08 Carbidopa/Levodopa 10-100 Mg Tablet PO 1 tab TID SHERRI Administration Cholecalciferol 2,000 units 11/05/20 09:00 11/07/20 08:05 Cholecalciferol 1,000 Units (25 Mcg) Tab PO 2,000 units DAILY SHERRI Administration Coenzyme Q10 50 mg 11/05/20 09:00 11/07/20 08:04 Ubidecarenone 50 Mg Cap PO 50 mg DAILY SHERRI Administration Dexamethasone 6 mg 11/04/20 09:00 11/07/20 08:05 Dexamethasone 4 Mg/Ml Vial SLOW IVP 6 mg DAILY SHERRI Administration Dextrose/Water 25 gm 11/03/20 19:43 11/06/20 12:23 Dextrose 50% Abboject 50 Ml Syringe SLOW IVP 25 gm PRN PRN Administration Hypoglycemia Divalproex Sodium 250 mg 11/04/20 21:00 11/07/20 08:04 Divalproex Sodium 250 Mg (Dr) Tab PO 250 mg BID SHERRI Administration Donepezil HCl 10 mg 11/05/20 09:00 11/07/20 08:05 Donepezil Hcl 10 Mg Tab PO 10 mg DAILY SHERRI Administration Enoxaparin Sodium 40 mg 11/04/20 09:00 11/07/20 08:06 Enoxaparin Sodium 40 Mg/0.4 Ml Syringe SC 40 mg 899 SHERRI Administration Fenofibrate 145 mg 11/05/20 09:00 11/07/20 08:05 Fenofibrate Nanocrystallized 145 Mg Tab PO 145 mg DAILY SHERRI Administration Furosemide 60 mg 11/04/20 21:00 11/07/20 08:04 Furosemide 40 Mg Tab PO 60 mg BID SHERRI Administration Dextrose/Water 1,000 mls @ 0 mls/hr 11/03/20 19:43 11/04/20 13:01 D5w IV 1,000 mls .Q0M PRN Administration Hypoglycemia As Directed Dextrose/Water 1,000 mls @ 75 mls/hr 11/06/20 06:00 11/07/20 14:08 D5w IV 1,000 mls .[id number] SHERRI Administration Insulin Human Lispro 0 units 11/03/20 19:43 11/06/20 21:25 Humalog 300 Units/3 Ml Vial SC 3 unit .MILD SLIDING SCALE PRN Administration Mild Correctional Scale Latanoprost 1 drop 11/04/20 21:00 11/06/20 20:25 Latanoprost 0.005% Ophth Soln 2.5 Ml Bottle EA EYE 1 drop HS SHERRI Administration Lisinopril 5 mg 11/05/20 09:00 11/07/20 08:24 Lisinopril 5 Mg Tab PO Not Given DAILY SHERRI Melatonin 3 mg 11/04/20 21:00 11/06/20 20:55 Melatonin 3 Mg Tab PO 3 mg HS SHERRI Administration Niacin 1,000 mg 11/04/20 21:00 11/06/20 22:13 Niacin Er 500 Mg Tab PO 1,000 mg HS SHERRI Administration Zinc Sulfate 220 mg 11/04/20 09:00 11/07/20 08:05 Zinc Sulfate 220 Mg Cap PO 220 mg DAILY SHERRI Administration - Exam Eye: anicteric sclera ENT: no oropharyngeal lesions Neck: supple Heart: RRR Respiratory: CTAB Gastrointestinal: soft, normal bowel sounds Skin: no rashes Psychiatric: normal affect Hosp A/P - Plan -Assessment/plan Acute encephalopathy Multifactorial etiology, including hypoglycemia and Covid infection. Clowly improving. Sepsis Most likely secondary to Covid pneumonia. COVID Pneumonia Stable Continue dexamethasone. Acute hypoxic respiratory failureresolved Continue to monitor Hypoglycemia Discontinue ISS. Dementia Stable.
[2020-11-07] MEDS: Atorvastatin Calcium 40 MG TAB PO SCH (20:17)
[2020-11-07] MEDS: Melatonin 3 MG TAB PO SCH (20:18)
[2020-11-07] MEDS: Latanoprost 0.005% Ophth Soln 2.5 ml Bottle EA EYE SCH (23:00)
[2020-11-08 07:09] LABS: #Basophils 0.1 thou/uL (0.0-0.2); #Eosinphils 0.2 thou/uL (0.0-0.7); #Lymphocytes 3.6 thou/uL (1.20-3.40); #Monocytes 1.1 thou/uL (0.11-0.59); #Neutrophils 8.7 thou/uL (1.40-6.50); %Basophils 0.7 % (0.0-1.0); %Eosinophils 1.5 % (0.0-10.0); %Monocytes 8.3 % (0.0-10.0); %Neutrophils 63.6 % (42.0-75.0); Hemoglobin 12.3 g/dL (14.0-18.0); Mean Corpuscular HGB CONC 32.6 g/dL (32.0-36.0); Mean Corpuscular Hemoglobin 30.9 pg (27.0-31.0); Mean Corpuscular Volume 94.7 fL (78.0-98.0); Mean Platelet Volume 8.5 fL (7.4-10.4); Platelet Count 180 thou/uL (130-400); RBC Distribution Width 12.9 % (11.5-14.5); Red Blood Cell (RBC) Count 3.98 mill/uL (4.70-6.10); White Blood Cell (WBC) Count 13.7 thou/uL (4.8-10.8)
[2020-11-08 07:15] LABS: Anion Gap 14 mmol/L (10-20); BUN (Urea Nitrogen) 31 mg/dL (8.4-25.7); Calc. Creatinine Clearance 79 mL/min (70-130); Calcium 7.6 mg/dL (7.8-10.44); Carbon Dioxide 25 mmol/L (23-31); Chloride 98 mmol/L (98-107); Glucose 90 mg/dL (80-115); Potassium 4.4 mmol/L (3.5-5.1); Sodium 133 mmol/L (136-145)
[2020-11-08] MEDS: Zinc Sulfate 220 MG CAP PO SCH (08:06)
[2020-11-08] MEDS: Ubidecarenone 50 MG CAP PO SCH (08:06)
[2020-11-08] MEDS: Enoxaparin Sodium 40 MG/0.4 ML SYRINGE SC SCH (08:06)
[2020-11-08] MEDS: Dexamethasone 4 mg/ml Vial SLOW IVP SCH (08:06)
[2020-11-08] MEDS: Aspirin Chewable 81 MG TAB PO SCH (08:06)
[2020-11-08] MEDS: Furosemide 40 MG TAB PO SCH ×2 (08:07→20:13)
[2020-11-08] MEDS: Cholecalciferol 1,000 UNITS (25 MCG) TAB PO SCH (08:07)
[2020-11-08] MEDS: Divalproex Sodium 250 MG (DR) TAB PO SCH ×2 (08:07→20:13)
[2020-11-08] MEDS: Fenofibrate Nanocrystallized 145 MG TAB PO SCH (08:07)
[2020-11-08] MEDS: Ascorbic Acid 500 mg Chewable Tablet PO SCH (08:07)
[2020-11-08] MEDS: Carbidopa/Levodopa 10-100 mg Tablet PO SCH ×3 (08:07→20:13)
[2020-11-08] MEDS: Donepezil HCl 10 MG TAB PO SCH (08:08)
[2020-11-08] MEDS: Lisinopril 5 MG TAB PO SCH (08:08)
[2020-11-08] MEDS: Dextrose 5% in Water 1,000 ML IV SCH (09:14)
--- NOTE | 2020-11-08 15:44 | PDOC.HOSPP ---
- Subjective Encounter Date: 11/08/20 Encounter Time: 11:30 Subjective: Patient seen for follow-up for encephalopathy. He is more alert today, answering a few questions but overall poor historian, could not complete review of systems. - Objective Vital Signs & Weight: Vital Signs (12 hours) Temp Pulse Resp BP BP Pulse Ox 11/08/20 11:46 97.8 F 60 20 139/71 99 11/08/20 09:17 98 11/08/20 08:08 60 118/70 11/08/20 08:00 97.3 F L 61 20 118/70 100 11/08/20 04:00 97.4 F L 60 18 116/63 98 Weight Admit Weight 209 lb 4.8 oz Weight 211 lb 12.8 oz I&O: 11/07/20 11/08/20 11/09/20 06:59 06:59 06:59 Intake Total 2280 2640 Balance 2280 2640 Result Diagrams: 11/08/20 06:50 11/08/20 06:50 Additional Labs: Accuchecks 11/08/20 11/08/20 11/07/20 11:03 05:12 20:49 POC Glucose 85 127 H 264 H 11/07/20 11/06/20 11/06/20 16:32 16:05 12:55 POC Glucose 157 H 182 H 175 H 11/06/20 11/06/20 11/05/20 12:20 05:17 06:28 POC Glucose 49 L* 38 L* 165 H Labs and MAR reviewed by me Hospitalist ROS - Review of Systems ROS unobtainable: due to mental status - Medication Medications: Active Medications Generic Name Dose Route Start Last Admin Trade Name Kristopherq PRN Reason Stop Dose Admin Ascorbic Acid 1,000 mg 11/04/20 09:00 11/08/20 08:07 Ascorbic Acid 500 Mg Chewable Tablet PO 1,000 mg DAILY SHERRI Administration Aspirin 81 mg 11/05/20 09:00 11/08/20 08:06 Aspirin Chewable 81 Mg Tab PO 81 mg DAILY SHERRI Administration Atorvastatin Calcium 40 mg 11/04/20 21:00 11/07/20 20:17 Atorvastatin Calcium 40 Mg Tab PO 40 mg 2100 SHERRI Administration Carbidopa/Levodopa 1 tab 11/04/20 15:00 11/08/20 13:51 Carbidopa/Levodopa 10-100 Mg Tablet PO 1 tab TID SHERRI Administration Cholecalciferol 2,000 units 11/05/20 09:00 11/08/20 08:07 Cholecalciferol 1,000 Units (25 Mcg) Tab PO 2,000 units DAILY SHERRI Administration Coenzyme Q10 50 mg 11/05/20 09:00 11/08/20 08:06 Ubidecarenone 50 Mg Cap PO 50 mg DAILY SHERRI Administration Dexamethasone 6 mg 11/04/20 09:00 11/08/20 08:06 Dexamethasone 4 Mg/Ml Vial SLOW IVP 6 mg DAILY SHERRI Administration Dextrose/Water 25 gm 11/03/20 19:43 11/06/20 12:23 Dextrose 50% Abboject 50 Ml Syringe SLOW IVP 25 gm PRN PRN Administration Hypoglycemia Divalproex Sodium 250 mg 11/04/20 21:00 11/08/20 08:07 Divalproex Sodium 250 Mg (Dr) Tab PO 250 mg BID SHERRI Administration Donepezil HCl 10 mg 11/05/20 09:00 11/08/20 08:08 Donepezil Hcl 10 Mg Tab PO 10 mg DAILY SHERRI Administration Enoxaparin Sodium 40 mg 11/04/20 09:00 11/08/20 08:06 Enoxaparin Sodium 40 Mg/0.4 Ml Syringe SC 40 mg 0900 SHERRI Administration Fenofibrate 145 mg 11/05/20 09:00 11/08/20 08:07 Fenofibrate Nanocrystallized 145 Mg Tab PO 145 mg DAILY SHERRI Administration Furosemide 60 mg 11/04/20 21:00 11/08/20 08:07 Furosemide 40 Mg Tab PO 60 mg BID SHERRI Administration Dextrose/Water 1,000 mls @ 0 mls/hr 11/03/20 19:43 11/04/20 13:01 D5w IV 1,000 mls .Q0M PRN Administration Hypoglycemia As Directed Dextrose/Water 1,000 mls @ 75 mls/hr 11/06/20 06:00 11/08/20 09:14 D5w IV Not Given .[id number] SHERRI Latanoprost 1 drop 11/04/20 21:00 11/07/20 23:00 Latanoprost 0.005% Ophth Soln 2.5 Ml Bottle EA EYE 1 drop HS SHERRI Administration Lisinopril 5 mg 11/05/20 09:00 11/08/20 08:08 Lisinopril 5 Mg Tab PO 5 mg DAILY SHERRI Administration Melatonin 3 mg 11/04/20 21:00 11/07/20 20:18 Melatonin 3 Mg Tab PO 3 mg HS SHERRI Administration Niacin 1,000 mg 11/04/20 21:00 11/07/20 20:18 Niacin Er 500 Mg Tab PO 1,000 mg HS SHERRI Administration Zinc Sulfate 220 mg 11/04/20 09:00 11/08/20 08:06 Zinc Sulfate 220 Mg Cap PO 220 mg DAILY SHERRI Administration - Exam General Appearance: awake alert ENT: moist mucosa Neck: supple Heart: RRR Respiratory: CTAB Gastrointestinal: soft, non-tender Skin: no rashes Psychiatric: normal affect Hosp A/P - Plan -Assessment/plan Acute encephalopathy Improving. Sepsis Most likely secondary to Covid pneumonia. COVID Pneumonia Stable Continue dexamethasone. Patient is not a candidate for dexamethasone. Acute hypoxic respiratory failureresolved Continue to monitor Hypoglycemia Resolved, discontinue dextrose containing fluids. Dementia Stable.
[2020-11-08] MEDS: Atorvastatin Calcium 40 MG TAB PO SCH (20:13)
[2020-11-08] MEDS: Latanoprost 0.005% Ophth Soln 2.5 ml Bottle EA EYE SCH (20:13)
[2020-11-08] MEDS: Melatonin 3 MG TAB PO SCH (20:13)
[2020-11-09] MEDS: Dextrose 5% in Water 1,000 ML IV SCH ×2 (00:20→13:42)
[2020-11-09 06:41] LABS: Hemoglobin 12.1 g/dL (14.0-18.0); Mean Corpuscular HGB CONC 32.2 g/dL (32.0-36.0); Mean Corpuscular Hemoglobin 30.4 pg (27.0-31.0); Mean Corpuscular Volume 94.1 fL (78.0-98.0); Mean Platelet Volume 8.6 fL (7.4-10.4); Platelet Count 184 thou/uL (130-400); RBC Distribution Width 13.1 % (11.5-14.5); Red Blood Cell (RBC) Count 3.98 mill/uL (4.70-6.10)
[2020-11-09 06:53] LABS: Anion Gap 16 mmol/L (10-20); BUN (Urea Nitrogen) 41 mg/dL (8.4-25.7); Calc. Creatinine Clearance 59 mL/min (70-130); Calcium 7.8 mg/dL (7.8-10.44); Carbon Dioxide 25 mmol/L (23-31); Chloride 97 mmol/L (98-107); Glucose 130 mg/dL (80-115); Sodium 133 mmol/L (136-145)
[2020-11-09 07:03] LABS: Eosinophils 3 % (0-10); Hypochromia SLIGHT = 6-15 cells (100X) (0-5/hpf); Lymphocytes 45 % (21-51); MDiff Complete? YES; Monocytes 12 % (0-10); Neutrophil 40 % (42-75); Platelet Morphology Comment Appears Adequate
[2020-11-09] MEDS: Dexamethasone 4 mg/ml Vial SLOW IVP SCH (07:59)
[2020-11-09] MEDS: Ascorbic Acid 500 mg Chewable Tablet PO SCH (08:00)
[2020-11-09] MEDS: Divalproex Sodium 250 MG (DR) TAB PO SCH (08:00)
[2020-11-09] MEDS: Zinc Sulfate 220 MG CAP PO SCH (08:00)
[2020-11-09] MEDS: Furosemide 40 MG TAB PO SCH (08:00)
[2020-11-09] MEDS: Fenofibrate Nanocrystallized 145 MG TAB PO SCH (08:01)
[2020-11-09] MEDS: Carbidopa/Levodopa 10-100 mg Tablet PO SCH ×2 (08:01→13:53)
[2020-11-09] MEDS: Lisinopril 5 MG TAB PO SCH (08:01)
[2020-11-09] MEDS: Aspirin Chewable 81 MG TAB PO SCH (08:01)
[2020-11-09] MEDS: Donepezil HCl 10 MG TAB PO SCH (08:01)
[2020-11-09] MEDS: Cholecalciferol 1,000 UNITS (25 MCG) TAB PO SCH (08:01)
[2020-11-09] MEDS: Ubidecarenone 50 MG CAP PO SCH (08:25)
[2020-11-09] MEDS: Enoxaparin Sodium 40 MG/0.4 ML SYRINGE SC SCH (08:25)
[2020-11-09 11:32] VITALS: BP 117/66; TEMP 97.7
--- NOTE | 2020-11-09 11:54 | PDOC.DS.DS ---
Provider - Provider Date of Admission: 11/04/20 09:39 Date of Discharge: 11/09/20 Admitting Provider: Jose Francisco Jorge MD Primary Care Physician: Danielle Garduno NP Course - Hospital Course Hospital Course: Discharge diagnosis: 1. Acute metabolic encephalopathy 2. Hypoglycemia 3. Acute kidney injury 4. Hyponatremia 5. COVID-19 infection Hospital course: Patient is a pleasant 59-year-old gentleman who was admitted to the hospital on November 03, 2020 for acute metabolic encephalopathy and hypoglycemic episodes. He received dextrose containing IV infusions. Insulin was held. Blood sugars improved. He was also briefly hypoxic and because of recent COVID-19 infection he was started on steroids. His mentation also improved. He is being discharged back to his detention in stable condition. On the day of discharge, his creatinine had worsened. Therefore, lisinopril was held. He is advised to have his blood sugars, heart rate and blood pressure 3 times a day and have his medications adjusted through primary care provider. Many thanks for allowing me to participate in your patient's care. Please feel free to contact me with any questions or concerns. Discharge destination: Long-term care, from where patient was admitted to the hospital Total amount of time spent coordinating this discharge: 32 minutes Resuscitation Status: 11/03/20 19:43 Resuscitation Status Routine Resuscitation Status: FULL: Full Resuscitation - Labs Lab Results: 11/09/20 05:42 11/09/20 05:42 Abnormal Lab Results - Last 48 hrs 11/08/20 06:50: Sodium 133 L, BUN 31 H, Calcium 7.6 L 11/08/20 06:50: WBC 13.7 H, RBC 3.98 L, Hgb 12.3 L, Hct 37.7 L, Neutrophils # 8.7 H, Lymphocytes # 3.6 H, Monocytes # 1.1 H 11/09/20 05:42: Sodium 133 L, Chloride 97 L, BUN 41 H, Creatinine 1.64 H 11/09/20 05:42: WBC 12.0 H, RBC 3.98 L, Hgb 12.1 L, Hct 37.5 L, Neutrophils % (Manual) 40 L, Monocytes % (Manual) 12 H - Physical Exam Vitals: Vital Signs (12 hours) Temp Pulse Resp BP BP BP Pulse Ox 11/09/20 11:31 97.7 F 52 L 20 117/66 97 11/09/20 08:45 99 11/09/20 08:01 59 L 130/72 11/09/20 08:00 97.4 F L 55 L 22 H 130/72 99 11/09/20 05:38 98.3 F 59 L 20 94/53 L 98 Weight Admit Weight 209 lb 4.8 oz Weight 210 lb 11.2 oz Physical Exam: The patient was seen and examined on the day of discharge. Vital signs are stable. S1 and S2 are heard. Lungs are clear to auscultation bilaterally. Plan - Discharge Medications Prescriptions: Dexamethasone 6 mg PO DAILY #4 tablet Furosemide [Lasix] 40 mg PO BID #60 tab Home Medications: Medication Instructions Recorded Confirmed Type Aspirin Chewable [Aspirin Chewable 81 mg PO DAILY 10/15/17 11/04/20 History Tablet] Fenofibrate Nanocrystallized 145 mg PO DAILY 10/15/17 11/04/20 History [Fenofibrate] Melatonin 3 mg PO HS 10/15/17 11/04/20 History Metoprolol Tartrate [Lopressor] 12.5 mg PO BID 10/15/17 11/04/20 History Polyethylene Glycol 3350 [Miralax] 17 gm PO DAILY 10/15/17 11/04/20 History Acetaminophen [Tylenol Extra 500 mg PO PRN PRN 11/04/20 11/04/20 History Strength] Amino Acids/Protein Hydrolys 30 ml PO BID 11/04/20 11/04/20 History [Pro-Stat 64 Liquid] Atorvastatin Calcium [Lipitor] 40 mg PO DAILY 11/04/20 11/04/20 History Carbidopa/Levodopa [Carbidopa-Levo 1 each PO TID 11/04/20 11/04/20 History 10-100 mg Odt] Cholecalciferol (Vitamin D3) 2,000 unit PO DAILY 11/04/20 11/04/20 History [Vitamin D3] Donepezil HCl [Aricept] 10 mg PO DAILY 11/04/20 11/04/20 History Glucagon [Gvoke Hypopen 1-Pack] 1 mg SQ ASDIR PRN 11/04/20 11/04/20 History Niacin [Niaspan] 1,000 mg PO HS 11/04/20 11/04/20 History Pen Needle, Diabetic [Insulin Pen 1 each MC BID PRN 11/04/20 11/04/20 History Needle] Petrolatum,White [Vaseline White 1 applic TOP BID 11/04/20 11/04/20 History Petroleum] Polyethylene Glycol 3350 [Miralax] 1 pkg PO ASDIR 11/04/20 11/04/20 History Travoprost [Travatan Z] 1 drop EA EYE HS 11/04/20 11/04/20 History Ubidecarenone [Co Q-10] 30 mg PO DAILY 11/04/20 11/04/20 History Valproic Acid [Depakene] 250 mg PO BID 11/04/20 11/04/20 History Ascorbic Acid [Vitamin C] 1,000 mg PO DAILY tab 11/09/20 Rx Dexamethasone 6 mg PO DAILY #4 tablet 11/09/20 Rx Furosemide [Lasix] 40 mg PO BID #60 tab 11/09/20 Rx Zinc Sulfate 220 mg PO DAILY cap 11/09/20 Rx Allergies: Penicillins Allergy (Verified 10/15/17 10:21) - Discharge Instructions Discharge Instructions:: Check your blood sugars, blood pressure and heart rate three times a day and show the readings to your primary care provider. Have your renal function checked in 3-5 days. Primary care provider to decide re: resuming lisinopril and insulin. - Follow up Plan Referrals: Danielle Garduno NP [Primary Care Provider] - Disposition: HOME Quality - Care Measures CORE MEASURES:: N/A
== END 2020-11-09 18:09 | disposition home or self-care (01) | DRG 871 ==
LOC: ERS 16:58 → T4-B 18:53 → OBSVTOIN 11-04 09:39
PROVIDERS: ADMIT Internal Medicine; ATTEND Internal Medicine
PROC: 8E0ZXY6 Isolation (ICD-10-PCS; 2020-11-03)
PROC: XW033E5 Introduction of Remdesivir Anti-infective into Peripheral Vein, Percutaneous Approach, New Technology Group 5 (ICD-10-PCS; principal; 2020-11-04)
DX: A41.89 Other specified sepsis (principal); U07.1 COVID-19; G93.41 Metabolic encephalopathy; N18.6 End stage renal disease; J96.01 Acute respiratory failure with hypoxia; J12.82 Pneumonia due to coronavirus disease 2019; N17.9 Acute kidney failure, unspecified; E87.1 Hypo-osmolality and hyponatremia; I12.0 Hypertensive chronic kidney disease with stage 5 chronic kidney disease or end stage renal disease; R65.20 Severe sepsis without septic shock; E11.43 Type 2 diabetes mellitus with diabetic autonomic (poly)neuropathy; K31.84 Gastroparesis; E11.649 Type 2 diabetes mellitus with hypoglycemia without coma; E11.22 Type 2 diabetes mellitus with diabetic chronic kidney disease; F03.90 Unspecified dementia, unspecified severity, without behavioral disturbance, psychotic disturbance, mood disturbance, and anxiety; Z99.2 Dependence on renal dialysis; Z93.3 Colostomy status; Z79.899 Other long term (current) drug therapy; Z79.82 Long term (current) use of aspirin; Z79.4 Long term (current) use of insulin; E87.5 Hyperkalemia
CPT/HCPCS: 36415; 36416; 71045; 80048; 80076; 82728; 83605; 85007; 85025; 85027; 85379; 86140; 96361; 96374; 96376; 99285; G0378; J1100; J1650; J1940

== ENCOUNTER 2020-11-18 07:20 | Inpatient (IN) | payer MEDICARE, MEDICAID ==
[2020-11-18] MEDS ORDERED: Vancomycin 1 GM/200 ML BAG ONE (08:07)
[2020-11-18] MEDS ORDERED: Acetaminophen 325 MG TAB PO PRN (10:13)
[2020-11-18] MEDS ORDERED: Dextrose 50% Abboject 50 ML SYRINGE SLOW IVP PRN (10:17)
[2020-11-18] MEDS ORDERED: Dextrose 5% in Water 1,000 ML IV PRN (10:17)
--- NOTE | 2020-11-18 10:31 | PDOC.HHP ---
Hospitalist HPI - History of Present Illness Hypoxia History of Present Illness: Patient is a 65-year-old male with a history of schizophrenia requiring prison care. Patient was recently admitted to this facility on November 03 for complications of Covid pneumonia. He also had some hypoglycemia and slight drop in his GFR. Patient was discharged back to the nursing facility. Today he was sent to the emergency department for hypoxia reported at the nursing facility. In the emergency department the patient did not demonstrate hypoxia. In fact he was documented to have a O2 sat of 97% on room air. He was tachycardic at 116. He had a chest x-ray which appeared to show some left lower lobe pneumonia. He was also noted to have some hyper natremia, hyperglycemia and lactic acidosis. He was given Rocephin and azithromycin and subsequently transferred to this facility. It is noted that the patient remained on Decadron after his discharge from the hospital. Also noted that the patient appears to have fairly high dosing of insulin. Currently the patient denies any problems. His records would indicate he may have some expressive aphasia although he tells me that he feels fine. He is not what I would consider cognitively normal and I do not know what his baseline is. He denies any shortness of breath or cough. Hospitalist ROS - Review of Systems ROS unobtainable: due to mental status - Medication Medications: Decadron 6 mg p.o. daily Vitamin C Lasix 20 mg 2 p.o. twice daily Zinc 220 mg p.o. daily Depakene 250 mg p.o. twice daily Difficult to assess which medications on his list are active versus inactive but it appears as though his insulin has been discontinued. Hospitalist History - Past Medical History Source: prison record, old records Cardiac: reports: HTN SAMPLE DYE MIXER: reports: Dementia Psych: reports: Schizophrenia Renal/: reports: Chronic renal insuff (Stage III) Endocrine: reports: Diabetes - Past Surgical History Other Surgical History: Colostomy - Family History Family History: reports: no pertinent history - Social History Smoking Status: Smoker, status unknown Other Social History: Patient lives in a prison facility. - Exam General Appearance: NAD, awake alert General - other findings: Eyes are open but does not make eye contact or track. Verbal. Neck: supple, symmetric Heart: RRR, no murmur, no gallops, no rubs Respiratory: no wheezes, no ronchi Respiratory - other findings: Left basilar rales. Gastrointestinal: soft, non-tender, non-distended, normal bowel sounds, no palpable masses, no hepatomegaly, no splenomegaly, no bruit Extremities: no cyanosis, no clubbing, 1+ LE edema (left) Skin: normal turgor Neurological: no focal deficits Musculoskeletal: generalized weakness Psychiatric: not oriented, lethargic (mild) Hospitalist Results - Labs Lab results: Lactic Acid 3.6 mmol/L (0.5-2.2) H 11/18/20 08:17 - EKG Interpretation EKG: NO change from prior. Hospitalist H&P A/P - Problem (1) Sepsis Code(s): A41.9 - SEPSIS, UNSPECIFIED ORGANISM Status: Acute (2) Pneumonia Code(s): J18.9 - PNEUMONIA, UNSPECIFIED ORGANISM Status: Acute (3) Lactic acidosis Code(s): E87.2 - ACIDOSIS Status: Acute (4) Hyperglycemia Code(s): R73.9 - HYPERGLYCEMIA, UNSPECIFIED Status: Acute (5) Hyponatremia Code(s): E87.1 - HYPO-OSMOLALITY AND HYPONATREMIA Status: Acute (6) CKD stage 3 secondary to diabetes Code(s): E11.22 - TYPE 2 DIABETES MELLITUS W DIABETIC CHRONIC KIDNEY DISEASE; N18.30 - CHRONIC KIDNEY DISEASE, STAGE 3 UNSPECIFIED Status: Acute (7) Colostomy in place Code(s): Z93.3 - COLOSTOMY STATUS Status: Chronic (8) Diabetes type 2, controlled Code(s): E11.9 - TYPE 2 DIABETES MELLITUS WITHOUT COMPLICATIONS Status: Chronic (9) Dyslipidemia Code(s): E78.5 - HYPERLIPIDEMIA, UNSPECIFIED Status: Chronic (10) Schizophrenia Code(s): F20.9 - SCHIZOPHRENIA, UNSPECIFIED Status: Chronic - Plan Plan: Sepsis: Patient had persistent tachycardia, lactic acidosis and evidence of left lower lobe pneumonia. Treat underlying pneumonia. Continue hydration. Left lower lobe pneumonia: Evident on x-ray and on exam. Likely bacterial in the setting of recent Covid pneumonia. Given that he was just in the hospital and lives in a group facility will DC Rocephin and azithromycin and initiate vancomycin and cefepime for healthcare acquired pneumonia. Lactic acidosis: Patient also has a bit of an anion gap. Checking beta hydroxybutyrate. Suspect this is more likely just lactic acidosis due to infection and some degree of dehydration. Already appears to be improving after hydration. Hyperglycemia/diabetes: Patient has been on steroids subsequent to his Covid pneumonia. It appears as though his insulin dosing has been discontinued at the nursing facility. Somewhat difficult for me to ascertain that information in the records. Continue with sliding scale insulin. Checking beta hydroxybutyrate. Hypernatremia: Suspect some degree of dehydration due to the hyperglycemia and the use of diuretics. Hydration. Monitor sodium levels. Recent COVID-19 pneumonia: Patient tested positive on October 20. He is essentially 30 days out from that diagnosis and no longer requires isolation. He no longer requires specific therapies. Schizophrenia: Continue with his Depakene dosing.
[2020-11-18 10:40] LABS: SARS-CoV-2 NAA Rapid Test DETECTED (NotDetected)
[2020-11-18 11:06] LABS: Anion Gap 14 mmol/L (10-20); BUN (Urea Nitrogen) 29 mg/dL (8.4-25.7); Calc. Creatinine Clearance 0 mL/min (70-130); Calcium 8.4 mg/dL (7.8-10.44); Carbon Dioxide 24 mmol/L (23-31); Chloride 115 mmol/L (98-107); Glucose 124 mg/dL (80-115); Sodium 149 mmol/L (136-145)
--- NOTE | 2020-11-18 12:05 | CT ---
CT OF THE THORAX WITHOUT IV CONTRAST INDICATION: Follow-up pneumonia COMPARISON: No relevant prior studies are available. FINDINGS: LUNGS: There are numerous scattered tree-in-bud type nodularity seen throughout both lungs with more prominent consolidation in the left lower lobe as well as the posterior medial right lower lobe. Pleural spaces: Clear Lymph nodes: Mildly prominent subcarinal lymph node measuring 1.2 cm. Heart and great vessels: There are coronary artery and thoracic aortic calcifications. Upper abdomen: Visualized aspects of the upper abdomen appear within normal limits. Osseous structures: No acute osseous abnormality. IMPRESSION: 1. Findings of scattered bronchiolitis with more prominent consolidation involving both lower lobes c onsistent with pneumonia.
[2020-11-18 12:17] LABS: Lactic Acid 2.2 mmol/L (0.5-2.2)
[2020-11-18] MEDS: Sodium Chloride 0.9% 1,000 ML IV SCH ×2 (13:07→20:35)
[2020-11-18 13:42] VITALS: BMI 27.1
[2020-11-18] MEDS: Cefepime 1 GM in Sodium Chloride 0.9% 100 ML IVPB SCH (16:29)
[2020-11-18] MEDS: Famotidine 20 MG TAB PO SCH (20:34)
[2020-11-18] MEDS: Valproic Acid 250 MG CAP PO SCH (20:35)
[2020-11-19] MEDS: Sodium Chloride 0.9% 1,000 ML IV SCH ×2 (00:37→15:26)
[2020-11-19] MEDS: Cefepime 1 GM in Sodium Chloride 0.9% 100 ML IVPB SCH ×2 (03:17→15:26)
[2020-11-19 07:24] LABS: Hemoglobin 10.6 g/dL (14.0-18.0); Mean Corpuscular HGB CONC 32.3 g/dL (32.0-36.0); Mean Corpuscular Hemoglobin 31.6 pg (27.0-31.0); Mean Platelet Volume 7.3 fL (7.4-10.4); Platelet Count 183 thou/uL (130-400); RBC Distribution Width 13.8 % (11.5-14.5); Red Blood Cell (RBC) Count 3.34 mill/uL (4.70-6.10); White Blood Cell (WBC) Count 10.7 thou/uL (4.8-10.8)
[2020-11-19 07:48] LABS: Anion Gap 10 mmol/L (10-20); BUN (Urea Nitrogen) 21 mg/dL (8.4-25.7); Calc. Creatinine Clearance 67 mL/min (70-130); Carbon Dioxide 27 mmol/L (23-31); Chloride 117 mmol/L (98-107); Glucose 124 mg/dL (80-115); Potassium 4.1 mmol/L (3.5-5.1); Sodium 150 mmol/L (136-145)
[2020-11-19 08:19] LABS: Band 16 % (5-11); Eosinophils 7 % (0-10); Lymphocytes 20 % (21-51); MDiff Complete? YES; Monocytes 4 % (0-10); Neutrophil 51 % (42-75); Platelet Morphology Comment Appears Adequate; Polychromasia SLIGHT = 2-3 cells (100X) (0-2/hpf); Reactive Lymphocytes 2 % (0-10)
[2020-11-19] MEDS: Vancomycin HCl 1.75 GM in Sodium Chloride 0.9% 500 ML IVPB SCH (08:25)
[2020-11-19] MEDS: Enoxaparin Sodium 40 MG/0.4 ML SYRINGE SC SCH (08:25)
[2020-11-19] MEDS: Valproic Acid 250 MG CAP PO SCH (08:26)
[2020-11-19] MEDS: Famotidine 20 MG TAB PO SCH ×2 (08:26→20:57)
--- NOTE | 2020-11-19 09:47 | PDOC.HOSPP ---
- Subjective Encounter Date: 11/19/20 Encounter Time: 11:00 Subjective: Patient without events overnight. She is n.p.o. pending speech therapy evaluation. She denies shortness of breath or cough - Objective Vital Signs & Weight: Vital Signs (12 hours) Temp Pulse Resp BP BP Pulse Ox 11/19/20 08:00 91 L 11/19/20 07:43 98.0 F 95 16 104/65 91 L 11/19/20 04:00 96.9 F L 94 20 106/57 L 92 L 11/19/20 00:00 97.7 F 97 20 112/60 99 Weight Weight 199 lb 14.4 oz I&O: 11/18/20 11/19/20 11/20/20 06:59 06:59 06:59 Intake Total 1100 Balance 1100 Result Diagrams: 11/19/20 06:51 11/19/20 03:30 Additional Labs: Accuchecks 11/19/20 11/18/20 11/18/20 05:38 20:48 16:43 POC Glucose 131 H 212 H 123 H 11/18/20 12:54 POC Glucose 121 H Hospitalist ROS - Review of Systems Constitutional: denies: fever, chills Respiratory: denies: cough, shortness of breath Cardiovascular: denies: chest pain, palpitations Gastrointestinal: denies: nausea, vomiting, abdominal pain - Medication Medications: Active Medications Generic Name Dose Route Start Last Admin Trade Name Freq PRN Reason Stop Dose Admin Acetaminophen 650 mg 11/18/20 10:13 11/18/20 20:35 Acetaminophen 325 Mg Tab PO 650 mg Q4H PRN Administration Headache/Fever/Mild Pain (1-3) Enoxaparin Sodium 40 mg 11/19/20 09:00 11/19/20 08:25 Enoxaparin Sodium 40 Mg/0.4 Ml Syringe SC 40 mg 0900 SHERRI Administration Famotidine 20 mg 11/18/20 21:00 11/19/20 08:26 Famotidine 20 Mg Tab PO 20 mg BID SHERRI Administration Sodium Chloride 1,000 mls @ 100 mls/hr 11/18/20 10:30 11/19/20 00:37 Normal Saline 0.9% IV 1,000 mls .Q10H SHERRI Administration Vancomycin HCl 1.75 gm/ Sodium 500 mls @ 250 mls/hr 11/19/20 08:00 11/19/20 08:25 Chloride IVPB 500 mls 0800 SHERRI Administration Cefepime HCl 1 gm/ Sodium 100 mls @ 200 mls/hr 11/18/20 16:00 11/19/20 03:17 Chloride IVPB 100 mls 0400,1600 SHERRI Administration - Exam General Appearance: NAD, awake alert ENT: moist mucosa Heart: RRR, no murmur, no gallops, no rubs Respiratory: no wheezes, no rales, no tachypnea Respiratory - other findings: Rhonchi in bilateral bases. Gastrointestinal: soft, non-tender, non-distended, normal bowel sounds Extremities: no edema Psychiatric: normal behavior. negative: normal affect (Odd affect) Hosp A/P - Plan Sepsis: Patient had persistent tachycardia, lactic acidosis and evidence of left lower lobe pneumonia. Treat underlying pneumonia with Cefepime and Vanc. Continue hydration, can d/c fluids once taking good po. Left lower lobe pneumonia: Evident on x-ray and on exam. Likely bacterial in the setting of recent Covid pneumonia. Given that he was just in the hospital and lives in a group facility will DC Rocephin and azithromycin and initiate vancomycin and cefepime for healthcare acquired pneumonia. Will get speech therapy to evmn before starting diet. Lactic acidosis: Patient also has a bit of an anion gap. Resolved. Hyperglycemia/diabetes: Patient has been on steroids subsequent to his Covid pneumonia. Will stop those. It appears as though his insulin dosing has been discontinued at the nursing facility. Somewhat difficult for me to ascertain that information in the records. Continue with sliding scale insulin. Beta hydroxybutyrate- negative. Hypernatremia: Suspect some degree of dehydration due to the hyperglycemia and the use of diuretics. Hydration. Monitor sodium levels. Recent COVID-19 pneumonia: Patient tested positive on October 20. He is essentially 30 days out from that diagnosis and no longer requires isolation. He no longer requires specific therapies. Schizophrenia: Continue with his Depakene dosing.
[2020-11-19] MEDS: Valproate Sodium 250 mg/5 ml UD Cup PO SCH ×2 (10:25→20:57)
--- NOTE | 2020-11-19 14:02 | RAD ---
Exam: Modified barium swallow HISTORY: COVID patient with dysphagia, unspecified. Feeding difficulties. Pneumonia. Exposure: 2.1 minutes, 13.03 mGy FINDINGS: In the presence of speech pathologist, the patient was administered thin liquid, nectar thi ck liquid, pudding and solid consistencies Premature spillage and dumping into the vallecula and piriform sinuses with all of a forementioned th abhijeet. No evidence of penetration or aspiration IMPRESSION: Please refer to speech pathologist report for feeding recommendation Transcribed Date/Time: 11/19/2020 2:06 PM
[2020-11-20] MEDS: Sodium Chloride 0.9% 1,000 ML IV SCH (03:27)
[2020-11-20] MEDS: Cefepime 1 GM in Sodium Chloride 0.9% 100 ML IVPB SCH ×2 (03:34→15:28)
[2020-11-20 07:40] LABS: #Basophils 0.1 thou/uL (0.0-0.2); #Eosinphils 0.7 thou/uL (0.0-0.7); #Lymphocytes 2.1 thou/uL (1.20-3.40); #Monocytes 0.5 thou/uL (0.11-0.59); #Neutrophils 6.7 thou/uL (1.40-6.50); %Basophils 0.8 % (0.0-1.0); %Eosinophils 7.3 % (0.0-10.0); %Lymphocytes 20.6 % (21.0-51.0); %Monocytes 5.1 % (0.0-10.0); %Neutrophils 66.1 % (42.0-75.0); Hemoglobin 10.5 g/dL (14.0-18.0); Mean Corpuscular HGB CONC 30.8 g/dL (32.0-36.0); Mean Corpuscular Hemoglobin 29.9 pg (27.0-31.0); Mean Platelet Volume 7.1 fL (7.4-10.4); Platelet Count 206 thou/uL (130-400); RBC Distribution Width 13.6 % (11.5-14.5); Red Blood Cell (RBC) Count 3.51 mill/uL (4.70-6.10); White Blood Cell (WBC) Count 10.1 thou/uL (4.8-10.8)
[2020-11-20 07:50] LABS: Vancomycin, Trough 16.1 ug/mL
[2020-11-20 07:53] LABS: Anion Gap 13 mmol/L (10-20); BUN (Urea Nitrogen) 14 mg/dL (8.4-25.7); Calc. Creatinine Clearance 76 mL/min (70-130); Calcium 8.2 mg/dL (7.8-10.44); Carbon Dioxide 20 mmol/L (23-31); Chloride 121 mmol/L (98-107); Glucose 124 mg/dL (80-115); Potassium 3.4 mmol/L (3.5-5.1); Sodium 151 mmol/L (136-145)
[2020-11-20] MEDS: Enoxaparin Sodium 40 MG/0.4 ML SYRINGE SC SCH (08:21)
[2020-11-20] MEDS: Famotidine 20 MG TAB PO SCH ×2 (08:21→21:03)
[2020-11-20] MEDS: Ascorbic Acid 500 mg Chewable Tablet PO SCH (08:21)
[2020-11-20] MEDS: Zinc Sulfate 220 MG CAP PO SCH (08:21)
[2020-11-20] MEDS: Valproate Sodium 250 mg/5 ml UD Cup PO SCH ×2 (08:21→21:04)
--- NOTE | 2020-11-20 08:35 | PDOC.HOSPP ---
- Subjective Encounter Date: 11/20/20 Encounter Time: 11:00 Subjective: Patient without events overnight. No complaints. Some cough demonstrated in the room. Was placed on 2 L nasal cannula earlier in the day but now back on room air. - Objective Vital Signs & Weight: Vital Signs (12 hours) Temp Pulse Resp BP Pulse Ox 11/20/20 07:37 97.9 F 90 20 153/70 H 93 L 11/20/20 04:00 97.9 F 77 18 125/74 100 11/20/20 00:00 97.6 F 81 18 130/70 100 Weight Admit Weight 199 lb 14.4 oz Weight 199 lb 14.4 oz I&O: 11/19/20 11/20/20 11/21/20 06:59 06:59 06:59 Intake Total 1100 Balance 1100 Result Diagrams: 11/20/20 07:06 11/20/20 07:06 Additional Labs: Accuchecks 11/20/20 11/19/20 11/19/20 04:50 20:33 15:38 POC Glucose 114 H 216 H 161 H 11/19/20 11:52 POC Glucose 115 H Hospitalist ROS - Review of Systems Constitutional: denies: fever, chills Respiratory: reports: cough. denies: shortness of breath Cardiovascular: denies: chest pain, palpitations Gastrointestinal: denies: nausea, vomiting, abdominal pain - Medication Medications: Active Medications Generic Name Dose Route Start Last Admin Trade Name Freq PRN Reason Stop Dose Admin Acetaminophen 650 mg 11/18/20 10:13 11/18/20 20:35 Acetaminophen 325 Mg Tab PO 650 mg Q4H PRN Administration Headache/Fever/Mild Pain (1-3) Ascorbic Acid 1,000 mg 11/20/20 09:00 11/20/20 08:21 Ascorbic Acid 500 Mg Chewable Tablet PO 1,000 mg DAILY SHERRI Administration Enoxaparin Sodium 40 mg 11/19/20 09:00 11/20/20 08:21 Enoxaparin Sodium 40 Mg/0.4 Ml Syringe SC 40 mg 0900 SHERRI Administration Famotidine 20 mg 11/18/20 21:00 11/20/20 08:21 Famotidine 20 Mg Tab PO 20 mg BID SHERRI Administration Sodium Chloride 1,000 mls @ 100 mls/hr 11/18/20 10:30 11/20/20 03:27 Normal Saline 0.9% IV Not Given .Q10H SHERRI Vancomycin HCl 1.75 gm/ Sodium 500 mls @ 250 mls/hr 11/19/20 08:00 11/19/20 08:25 Chloride IVPB 500 mls 0800 SHERRI Administration Cefepime HCl 1 gm/ Sodium 100 mls @ 200 mls/hr 11/18/20 16:00 11/20/20 03:34 Chloride IVPB 100 mls 0400,1600 SHERRI Administration Valproic Acid 250 mg 11/19/20 09:00 11/20/20 08:21 Valproate Sodium 250 Mg/5 Ml Ud Cup PO 250 mg BID SHERRI Administration Zinc Sulfate 220 mg 11/20/20 09:00 11/20/20 08:21 Zinc Sulfate 220 Mg Cap PO 220 mg DAILY SHERRI Administration - Exam General Appearance: NAD, awake alert ENT: moist mucosa Heart: RRR, no murmur, no gallops, no rubs Respiratory: no wheezes, no rales, no tachypnea Respiratory - other findings: Bibasilar rhonchi, no increased work of breathing Gastrointestinal: soft, non-tender, non-distended, normal bowel sounds Extremities: no edema Psychiatric: normal behavior, flat affect Hosp A/P - Plan Sepsis: Patient had persistent tachycardia, lactic acidosis and evidence of left lower lobe pneumonia. Treat underlying pneumonia with Cefepime and Vanc. Continue hydration, can d/c fluids once taking good po. Left lower lobe pneumonia: Evident on x-ray and on exam. Likely bacterial in the setting of recent Covid pneumonia. Also suspicious of possible aspiration. Given that he was just in the hospital and lives in a group facility will DC Rocephin and azithromycin and initiate vancomycin and cefepime for healthcare acquired pneumonia. Oropharyngeal dysphagia: Patient with abnormal MBS ST started diet NDD1 pureed with extra sauce/gravy and nectar thick liquids by spoon Lactic acidosis: Patient also has a bit of an anion gap. Resolved. Hyperglycemia/diabetes: Patient has been on steroids subsequent to his Covid pneumonia. Will stop those. It appears as though his insulin dosing has been discontinued at the nursing facility. Somewhat difficult for me to ascertain that information in the records. Continue with sliding scale insulin. Beta hydroxybutyrate- negative. Blood sugars under decent control, may elevate with improved diet. Hypernatremia: Suspect some degree of dehydration due to the hyperglycemia and the use of diuretics. Hydration. Worsening with rehydration so will change fluids to 1/2 NS. Recent COVID-19 pneumonia: Patient tested positive on October 20. He is essentially 30 days out from that diagnosis and no longer requires isolation. He no longer requires specific therapies. Schizophrenia: Continue with his Depakene dosing. Disposition: Will go back to detention when stable. Modified barium swallow HISTORY: COVID patient with dysphagia, unspecified. Feeding difficulties. Pneumonia. Exposure: 2.1 minutes, 13.03 mGy FINDINGS: In the presence of speech pathologist, the patient was administered thin liquid, nectar thick liquid, pudding and solid consistencies Premature spillage and dumping into the vallecula and piriform sinuses with all of a forementioned these. No evidence of penetration or aspiration
[2020-11-20] MEDS: Sodium Chloride 0.45% 1,000 ML IV SCH ×2 (09:21→18:00)
[2020-11-20] MEDS: Vancomycin HCl 1.75 GM in Sodium Chloride 0.9% 500 ML IVPB SCH (09:54)
[2020-11-21] MEDS: Cefepime 1 GM in Sodium Chloride 0.9% 100 ML IVPB SCH ×2 (03:24→18:02)
[2020-11-21] MEDS ORDERED: Albuterol Sulfate 2.5 mg/3 ml Neb NEB PRN (04:28)
[2020-11-21] MEDS ORDERED: Albuterol 200 PUFF (6.7GM INHALER) INH PRN (04:37)
[2020-11-21] MEDS: Sodium Chloride 0.45% 1,000 ML IV SCH ×2 (06:03→15:48)
[2020-11-21] MEDS: Zinc Sulfate 220 MG CAP PO SCH (07:36)
[2020-11-21] MEDS: Valproate Sodium 250 mg/5 ml UD Cup PO SCH ×2 (07:36→21:41)
[2020-11-21] MEDS: Famotidine 20 MG TAB PO SCH ×2 (07:36→21:30)
[2020-11-21] MEDS: Ascorbic Acid 500 mg Chewable Tablet PO SCH (07:36)
[2020-11-21] MEDS: Vancomycin HCl 1.75 GM in Sodium Chloride 0.9% 500 ML IVPB SCH (07:36)
[2020-11-21] MEDS: Enoxaparin Sodium 40 MG/0.4 ML SYRINGE SC SCH (07:37)
--- NOTE | 2020-11-21 09:15 | RAD ---
PORTABLE CHEST: 11/21/20 PROVIDED CLINICAL HISTORY: Dyspnea. COMPARISON: 11/18/2020 FINDINGS: The cardiac and mediastinal silhouette is unchanged in appearance. Bilateral air space disease is red emonstrated, similar to prior. No definite pleural fluid or pneumothorax apparent. IMPRESSION: No significant interval change. POS: PASTOR
[2020-11-21] MEDS: HumaLOG 300 UNITS/3 ML VIAL SC PRN (12:11)
--- NOTE | 2020-11-21 15:00 | PDOC.HOSPP ---
- Subjective Encounter Time: 15:00 Subjective: Pt demetrius unresponsive in his room on my entrance in the room - Objective Vital Signs & Weight: Vital Signs (12 hours) Temp Pulse Resp BP Pulse Ox 11/21/20 12:14 98.9 F 109 H 22 H 169/96 H 92 L 11/21/20 08:55 100 11/21/20 08:49 100 11/21/20 07:51 97.9 F 81 20 155/70 H 100 11/21/20 04:10 36 H 98 11/21/20 04:00 96.6 F L 87 20 163/64 H 99 11/21/20 03:39 91 40 H 92 L Weight Admit Weight 199 lb 14.4 oz Weight 199 lb 14.4 oz I&O: 11/20/20 11/21/20 11/22/20 06:59 06:59 06:59 Intake Total 480 Balance 480 Result Diagrams: 11/21/20 14:41 11/21/20 14:41 Additional Labs: Accuchecks 11/21/20 11/21/20 11/20/20 11:59 05:09 20:42 POC Glucose 180 H 113 H 109 H 11/20/20 16:20 POC Glucose 106 H Hospitalist ROS - Medication Medications: Active Medications Generic Name Dose Route Start Last Admin Trade Name Freq PRN Reason Stop Dose Admin Acetaminophen 650 mg 11/18/20 10:13 11/18/20 20:35 Acetaminophen 325 Mg Tab PO 650 mg Q4H PRN Administration Headache/Fever/Mild Pain (1-3) Albuterol Sulfate 2 puff 11/21/20 04:37 11/21/20 06:00 Albuterol 200 Puff (6.7gm Inhaler) INH 2 puff [id number] PRN Administration Wheezing Ascorbic Acid 1,000 mg 11/20/20 09:00 11/21/20 07:36 Ascorbic Acid 500 Mg Chewable Tablet PO 1,000 mg DAILY SHERRI Administration Enoxaparin Sodium 40 mg 11/19/20 09:00 11/21/20 07:37 Enoxaparin Sodium 40 Mg/0.4 Ml Syringe SC 40 mg 0900 SHERRI Administration Famotidine 20 mg 11/18/20 21:00 11/21/20 07:36 Famotidine 20 Mg Tab PO 20 mg BID SHERRI Administration Vancomycin HCl 1.75 gm/ Sodium 500 mls @ 250 mls/hr 11/19/20 08:00 11/21/20 07:36 Chloride IVPB 500 mls 0800 SHERRI Administration Cefepime HCl 1 gm/ Sodium 100 mls @ 200 mls/hr 11/18/20 16:00 11/21/20 03:24 Chloride IVPB 100 mls 0400,1600 SHERRI Administration Sodium Chloride 1,000 mls @ 100 mls/hr 11/20/20 08:45 11/21/20 06:03 1/2 Normal Saline IV 1,000 mls .Q10H SHERRI Administration Insulin Human Lispro 0 units 11/18/20 10:17 11/21/20 12:11 Humalog 300 Units/3 Ml Vial SC 2 unit .MILD SLIDING SCALE PRN Administration Mild Correctional Scale Valproic Acid 250 mg 11/19/20 09:00 11/21/20 07:36 Valproate Sodium 250 Mg/5 Ml Ud Cup PO 250 mg BID SHERRI Administration Zinc Sulfate 220 mg 11/20/20 09:00 11/21/20 07:36 Zinc Sulfate 220 Mg Cap PO 220 mg DAILY SHERRI Administration - Exam General - other findings: intubated ENT: no oropharyngeal lesions Neck: supple Heart - other findings: tachycardia Respiratory - other findings: decrease air antry bases Gastrointestinal: soft Gastrointestinal - other findings: colostmy bag Extremities: no clubbing Skin: no lesions Neurological - other findings: orally intubated Psychiatric - other findings: unable to access Hosp A/P - Plan Cardiorespiratory arrest Pt found unresponsive upon my enterence in the room and no respiration and pulse and code blue activated and CPR started with ACLS protocol and CPR continued for approximatly done 12 min and pt regained pulse and intubated and transfered to ICU , I called and spoke with Igor [phone] and updated her she told me she takes decision about pt innursing home and currently wants pt to be full code Labs chest x ray , Abg , EKG ordered , spoke with Dr Wang on phone Sepsis: Patient had persistent tachycardia, lactic acidosis and evidence of left lower lobe pneumonia. Currenlty on Cefepime and Vanc. Left lower lobe pneumonia: Evident on x-ray and on exam. Likely bacterial in the setting of recent Covid pneumonia. possible aspiration. Continue on vancomycin and cefepime for healthcare acquired pneumonia. Oropharyngeal dysphagia: Patient with abnormal MBS ST started diet NDD1 pureed with extra sauce/gravy and nectar thick liquids by spoon Start tube feeding as currently intubated Lactic acidosis: Hyperglycemia/diabetes: Continue monitoring blood sugar Hypernatremia: repeat labs post CPR Recent COVID-19 pneumonia: Patient tested positive on October 20. He is essentially 30 days out from that diagnosis and no longer requires isolation. Schizophrenia: Continue with his Depakene dosing.
[2020-11-21 15:03] LABS: Hemoglobin 11.4 g/dL (14.0-18.0); Mean Corpuscular HGB CONC 30.7 g/dL (32.0-36.0); Mean Corpuscular Hemoglobin 31.4 pg (27.0-31.0); Mean Platelet Volume 7.2 fL (7.4-10.4); Platelet Count 219 thou/uL (130-400); RBC Distribution Width 13.6 % (11.5-14.5); Red Blood Cell (RBC) Count 3.64 mill/uL (4.70-6.10); White Blood Cell (WBC) Count 13.8 thou/uL (4.8-10.8)
[2020-11-21 15:14] LABS: ALT (SGPT) 45 U/L (8-55); AST (SGOT) 58 U/L (5-34); Albumin 2.1 g/dL (3.4-4.8); Alkaline Phosphatase 112 U/L (40-110); Anion Gap 28 mmol/L (10-20); BUN (Urea Nitrogen) 11 mg/dL (8.4-25.7); Band 27 % (5-11); Bilirubin, Total 0.2 mg/dL (0.2-1.2); Calc. Creatinine Clearance 61 mL/min (70-130); Calcium 8.6 mg/dL (7.8-10.44); Carbon Dioxide 14 mmol/L (23-31); Chloride 114 mmol/L (98-107); Globulin 4.8 g/dL (2.4-3.5); Glucose 155 mg/dL (80-115); Lymphocytes 3 % (21-51); MDiff Complete? YES; Metamyelocyte 3 % (0-0); Monocytes 3 % (0-10); Neutrophil 64 % (42-75); Platelet Morphology Comment Appears Adequate; Potassium 4.4 mmol/L (3.5-5.1); Protein, Total 6.9 g/dL (5.8-8.1); RBC Morphology Normal; Sodium 152 mmol/L (136-145)
--- NOTE | 2020-11-21 15:32 | RAD ---
PORTABLE CHEST: Date: 11-01-2020 PROVIDED CLINICAL HISTORY: Respiratory insufficiency Comparison: 11-21-2020 at 5:18 a.m. FINDINGS: Interval placement of endotracheal tube, the tip of which terminates in the region of the thoracic in let. Placement of enteric catheter, the tip of which overlies the left upper quadrant. Persistent pat michelle bilateral air space disease. The supine nature of the study is not sensitive for detection of ple ural fluid or pneumothorax without gross evidence for such. POS: PASTOR
[2020-11-21 16:00] LABS: Bilirubin Negative (Negative); Blood, Urine Negative (Negative); Clarity Turbid (Clear); Glucose, Urine (Dipstick) Normal (Negative); Ketone, Urine 10 mg/dL (Negative); Leukocyte Negative Leu/uL (Negative); Nitrite Negative (Negative); Protein, Urine (Dipstick) 50 mg/dL (Neg-Trace); Specific Gravity, Urine 1.016 (1.002-1.036); Urobilinogen Normal mg/dL (Less than 2)
[2020-11-21 16:09] LABS: RBC/HPF 0-3 HPF (0-3); Squamous Epithelial 0-3 HPF (0-3); WBC/HPF 0-3 HPF (0-3)
[2020-11-21 16:10] LABS: Bacteria/HPF Rare-Few HPF (None Seen); Transitional Epithelial 0-3 HPF (None Seen)
[2020-11-21 16:13] LABS: Urine Culture Reflex No No
--- NOTE | 2020-11-21 16:25 | PRG ---
DATE OF SERVICE: 11/21/2020 Mr. Gates is an unfortunate male who had a cardiac arrest. He was resuscitated, but coded multiple times. I was told that he either had 6 or 7 amps of epinephrine during the multiple resuscitation attempts. He is now in the Critical Care Unit and I was consulted. PAST MEDICAL HISTORY: Remarkable for, 1. Being a resident of a full-time care center. 2. History of COVID a month ago. 3. History of swallowing dysfunction. 4. History of schizophrenia. 5. History of hypertension. 6. History of dementia. 7. History of chronic kidney disease. 8. History of diabetes. 9. History of colostomy. FAMILY HISTORY: Negative for lung disease in early age. SOCIAL HISTORY: According to old records, he is a nonsmoker, nondrinker, living in a care home. REVIEW OF SYSTEMS: Unobtainable. PHYSICAL EXAMINATION: EYES: Pupils were midposition. VITAL SIGNS: Afebrile. Heart rate now 113. He is in sinus rhythm. Blood pressure 126/60, oximetry is 100%, respiratory rate is 20. LUNGS: Remarkable for equal breath sounds. HEART: Regular rhythm. S1, S2 are normal. ABDOMEN: Soft. EXTREMITIES: Without clubbing, cyanosis, or edema. LABORATORY DATA: White count 13.8, hemoglobin 11.4, platelets 219. Sodium 152, potassium 4.4, chloride 114, bicarb 14, BUN 11, creatinine 1.5. 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 I have explained to the family by phone that repeating a code will not increase his chances for survival or functional recovery and I have explained to them that we will move forward with continued care, but a do not resuscitate status. The cousin I talked to was agreeable with this and was relying everything to the family. He apparently has a brother who has power of health care. CRITICAL CARE TIME: 30 minutes. Job ID: [id number] MTDD
[2020-11-21] MEDS ORDERED: Norepinephrine 8 MG/250 ML IVPB SCH (17:15)
[2020-11-21] MEDS ORDERED: DISCONTINUE PREVIOUS NARCOTIC PAIN MEDICATIONS AND BENZODIAZEPINES FS SCH (18:30)
[2020-11-21] MEDS ORDERED: Lorazepam 2 MG/ML VIAL SLOW IVP PRN (18:30)
[2020-11-21] MEDS ORDERED: Morphine 2 MG/ML VIAL SLOW IVP PRN (18:30)
[2020-11-21] MEDS ORDERED: Propofol BOLUS 1,000 MG/100 ML VIAL IV PRN (18:30)
[2020-11-21] MEDS ORDERED: Propofol 1,000 MG/100 ML VIAL IV PRN (18:30)
[2020-11-21] MEDS ORDERED: Fentanyl BOLUS 250 ML IVPB PRN (18:30)
[2020-11-21] MEDS ORDERED: Fentanyl CADD 100 ML IV SCH (18:30)
[2020-11-21] MEDS ORDERED: Adenosine 6 MG/2 ML VIAL ONE (23:17)
[2020-11-22] MEDS: Sodium Chloride 0.45% 1,000 ML IV SCH ×2 (02:23→12:12)
[2020-11-22] MEDS: Cefepime 1 GM in Sodium Chloride 0.9% 100 ML IVPB SCH (04:48)
[2020-11-22] MEDS: HumaLOG 300 UNITS/3 ML VIAL SC PRN (06:32)
[2020-11-22 07:55] LABS: Vancomycin, Trough 35.1 ug/mL
[2020-11-22] MEDS ORDERED: Vancomycin 1 GM in Premix Bag 1 BAG IVPB SCH (08:30)
--- NOTE | 2020-11-22 09:32 | PDOC.HOSPP ---
- Subjective Encounter Date: 11/22/20 Encounter Time: 11:40 Subjective: Patient unresponsive on the vent. Patient was found by physician on the floor yesterday without breathing and without a pulse. After 15 minutes of ACLS patient did have return of spontaneous circulation. Palliative care has consulted and discussed with patient's family. Family has decided on do not attempt resuscitation and plan on compassionately extubating later today. - Objective Vital Signs & Weight: Vital Signs (12 hours) Temp Pulse Resp BP 11/22/20 08:00 100.2 F H 11/22/20 06:48 96 121/68 11/22/20 06:00 24 H 11/22/20 04:00 98.7 F 23 H 11/22/20 02:00 26 H 11/22/20 01:57 96 11/22/20 00:00 99.1 F 23 H 11/21/20 23:21 211 H 11/21/20 22:00 21 H Weight Admit Weight 199 lb 14.4 oz Weight 199 lb 14.4 oz Most Recent Monitor Data Heart Rate from ECG 95 NIBP 125/67 NIBP BP-Mean 86 Respiration from ECG 20 SpO2 100 I&O: 11/21/20 11/22/20 11/23/20 06:59 06:59 06:59 Intake Total 1695 1746 Output Total 30 20 Balance 1695 1716 -20 Result Diagrams: 11/21/20 14:41 11/21/20 14:41 Additional Labs: Accuchecks 11/22/20 11/21/20 11/21/20 06:29 21:12 16:04 POC Glucose 232 H 181 H 133 H 11/21/20 11:59 POC Glucose 180 H Hospitalist ROS - Review of Systems ROS unobtainable: due to endotracheal tube - Medication Medications: Active Medications Generic Name Dose Route Start Last Admin Trade Name Freq PRN Reason Stop Dose Admin Acetaminophen 650 mg 11/18/20 10:13 11/18/20 20:35 Acetaminophen 325 Mg Tab PO 650 mg Q4H PRN Administration Headache/Fever/Mild Pain (1-3) Albuterol Sulfate 2 puff 11/21/20 04:37 11/21/20 06:00 Albuterol 200 Puff (6.7gm Inhaler) INH 2 puff [id number] PRN Administration Wheezing Ascorbic Acid 1,000 mg 11/20/20 09:00 11/21/20 07:36 Ascorbic Acid 500 Mg Chewable Tablet PO 1,000 mg DAILY SHERRI Administration Enoxaparin Sodium 40 mg 11/19/20 09:00 11/21/20 07:37 Enoxaparin Sodium 40 Mg/0.4 Ml Syringe SC 40 mg 0900 SHERRI Administration Famotidine 20 mg 11/18/20 21:00 11/21/20 21:30 Famotidine 20 Mg Tab PO 20 mg BID SHERRI Administration Cefepime HCl 1 gm/ Sodium 100 mls @ 200 mls/hr 11/18/20 16:00 11/22/20 04:48 Chloride IVPB 100 mls 0400,1600 SHERRI Administration Sodium Chloride 1,000 mls @ 100 mls/hr 11/20/20 08:45 11/22/20 02:23 1/2 Normal Saline IV 1,000 mls .Q10H SHERRI Administration Insulin Human Lispro 0 units 11/18/20 10:17 11/22/20 06:32 Humalog 300 Units/3 Ml Vial SC 3 unit .MILD SLIDING SCALE PRN Administration Mild Correctional Scale Valproic Acid 250 mg 11/19/20 09:00 11/21/20 21:41 Valproate Sodium 250 Mg/5 Ml Ud Cup PO 250 mg BID SHERRI Administration Zinc Sulfate 220 mg 11/20/20 09:00 11/21/20 07:36 Zinc Sulfate 220 Mg Cap PO 220 mg DAILY SHERRI Administration - Exam General - other findings: Unresponsive on vent ENT: moist mucosa Heart: RRR, no murmur, no gallops, no rubs Respiratory: CTAB, no wheezes, no rales, no ronchi Gastrointestinal: soft, non-tender, non-distended Gastrointestinal - other findings: Decreased bowel sounds Extremities: no edema Psychiatric - other findings: Unresponsive Hosp A/P - Plan Cardiorespiratory arrest: Pt found unresponsive upon physician entrance to the room yesterday and no respiration and pulse and code blue activated and CPR started with ACLS protocol and CPR continued for approximatly done 12 min and pt regained pulse and intubated and transfered to ICU. Dr. Wang consulted and physician updated family. Dr. Wang discussed with family and they have switched to DNAR. Plan is to compassionately extubate later today. Acute respiratory failure with hypoxia and hypercapnea: Intubated and sedated Sepsis: Patient had persistent tachycardia, lactic acidosis and evidence of left lower lobe pneumonia. Treat underlying pneumonia with Cefepime and Vanc. Continue hydration, can d/c fluids once taking good po. Left lower lobe pneumonia: Evident on x-ray and on exam. Likely bacterial in the setting of recent Covid pneumonia. Also suspicious of possible aspiration. Given that he was just in the hospital and lives in a group facility will DC Rocephin and azithromycin and initiate vancomycin and cefepime for healthcare acquired pneumonia. Oropharyngeal dysphagia: Patient with abnormal MBS ST started diet NDD1 pureed with extra sauce/gravy and nectar thick liquids by spoon Lactic acidosis: Patient also has a bit of an anion gap. Resolved. Hyperglycemia/diabetes: Patient has been on steroids subsequent to his Covid pneumonia. Will stop those. It appears as though his insulin dosing has been discontinued at the nursing facility. Somewhat difficult for me to ascertain that information in the records. Continue with sliding scale insulin. Beta hydroxybutyrate- negative. Blood sugars under decent control, may elevate with improved diet. Hypernatremia: Suspect some degree of dehydration due to the hyperglycemia and the use of diuretics. Hydration. Worsening with rehydration so will change fluids to 1/2 NS. Recent COVID-19 pneumonia: Patient tested positive on October 20. He is essentially 30 days out from that diagnosis and no longer requires isolation. He no longer requires specific therapies. Schizophrenia: Continue with his Depakene dosing. Disposition: Plan for compassionate extubation later today. Patient not likely to survive. Modified barium swallow HISTORY: COVID patient with dysphagia, unspecified. Feeding difficulties. Pneumonia. Exposure: 2.1 minutes, 13.03 mGy FINDINGS: In the presence of speech pathologist, the patient was administered thin liquid, nectar thick liquid, pudding and solid consistencies Premature spillage and dumping into the vallecula and piriform sinuses with all of a forementioned these. No evidence of penetration or aspiration
[2020-11-22] MEDS: Vancomycin HCl 1.75 GM in Sodium Chloride 0.9% 500 ML IVPB SCH (09:47)
[2020-11-22] MEDS: Famotidine 20 MG TAB PO SCH (10:01)
[2020-11-22] MEDS: Enoxaparin Sodium 40 MG/0.4 ML SYRINGE SC SCH (10:01)
[2020-11-22] MEDS: Ascorbic Acid 500 mg Chewable Tablet PO SCH (10:01)
[2020-11-22] MEDS: Zinc Sulfate 220 MG CAP PO SCH (10:01)
[2020-11-22] MEDS: Valproate Sodium 250 mg/5 ml UD Cup PO SCH (10:01)
[2020-11-22 10:17] VITALS: BP 134/62
--- NOTE | 2020-11-22 11:29 | PRG ---
DATE OF SERVICE: 11/22/2020 SUBJECTIVE: Mr. Gates remains intubated on mechanical ventilation. He is unresponsive to deep painful stimuli, but does have some spontaneous respirations. I do not find any gag reflex. I am told that his family is coming in this afternoon and they are likely to withdraw care. The patient is already DNAR. OBJECTIVE: VITAL SIGNS: His temperature is 100.2, pulse 94, blood pressure 135/67, O2 saturation 100%. HEENT: Unremarkable. NECK: No JVD. LUNGS: Coarse breath sounds. CARDIAC: S1 and S2, regular. ABDOMEN: Soft. EXTREMITIES: No edema. NEUROLOGIC: No activity other than spontaneous respirations. LABORATORY DATA: No labs were done today. ASSESSMENT: 1. Status post arrest, which was at least 12 minutes. 2. Sepsis. 3. Pneumonia. 4. Oropharyngeal dysphagia. 5. Diabetes mellitus. 6. Hyponatremia. 7. COVID pneumonia in September. 8. Schizophrenia. PLAN: Withdrawal of care is planned for later today. I would agree with that. No further pulmonary recommendations at this time. Job ID: [id number]
[2020-11-22 12:32] VITALS: TEMP 101.2
--- NOTE | 2020-11-22 13:50 | PDOC.FMACP ---
Advance Care Planning - Problem (1) Cardiac arrest Status: Acute Code(s): I46.9 - CARDIAC ARREST, CAUSE UNSPECIFIED (2) Palliative care encounter Status: Acute Code(s): Z51.5 - ENCOUNTER FOR PALLIATIVE CARE (3) CKD stage 3 secondary to diabetes Status: Acute Code(s): E11.22 - TYPE 2 DIABETES MELLITUS W DIABETIC CHRONIC KIDNEY DISEASE; N18.30 - CHRONIC KIDNEY DISEASE, STAGE 3 UNSPECIFIED (4) Pneumonia Status: Acute Code(s): J18.9 - PNEUMONIA, UNSPECIFIED ORGANISM (5) Sepsis Status: Acute Code(s): A41.9 - SEPSIS, UNSPECIFIED ORGANISM - Note Participants: family, palliative care Summary: Palliative care has revisited Advanced Care Planning with patient family. The diagnosis, prognosis and goals of care were discussed. Appropriate forms and documentation to accomplish the goals of care were discussed. All questions were answered. Understanding of poor prognosis Confirmed DNAR status Family to compassionately extubate patient Will place comfort medications Communicated with Dr Magallanes. Please also refer to Palliative care notes in note section.
--- NOTE | 2020-11-22 15:48 | PDOC.DS.DS ---
Provider - Provider Date of Admission: 11/18/20 08:49 Date of Discharge: 11/22/20 (Transfer to inpatient hospice) Admitting Provider: Garcia Chávez MD Consultations: Pulmonary (Dr. Wang), Other (Palliative care) Primary Care Physician: Danielle Garduno NP Course - Hospital Course Hospital Course: This is a 65-year-old male admitted to the hospital with sepsis and left lower lobe pneumonia. Patient did have Covid back in September but is cleared by now. He was thought to likely have aspiration and so had a modified barium swallow. He did have to be switched to nectar thickened liquids. During patient's hospital stay he will did go into respiratory and cardiac arrest on the floor. He had successful resuscitation and was transferred to the ICU. Dr. Wang and palliative care discussed the patient's prognosis with the family and they decided to make him do not attempt resuscitation and transition him to inpatient hospice. The plan is to compassionately extubate. Resuscitation Status: 11/21/20 15:19 Resuscitation Status Routine Resuscitation Status: DNAR: NO Resuscitation Discussed with: cousin - Labs Lab Results: 11/21/20 14:41 11/21/20 14:41 Abnormal Lab Results - Last 48 hrs 11/21/20 14:41: WBC 13.8 H, RBC 3.64 L, Hgb 11.4 L, Hct 37.2 L, MCV 102.0 H, MCH 31.4 H, MCHC 30.7 L, MPV 7.2 L, Band Neuts % (Manual) 27 H, Lymphocytes % (Manual) 3 L 11/21/20 14:41: Sodium 152 H, Chloride 114 H, Carbon Dioxide 14 L, Anion Gap 28 H, Creatinine 1.50 H, AST 58 H, Alkaline Phosphatase 112 H, Albumin 2.1 L, Globulin 4.8 H, Albumin/Globulin Ratio 0.4 L 11/21/20 15:35: Urine Clarity Turbid A, Urine Protein 50 A, Urine Ketones 10 A, Ur Transition Epith Cell 0-3 A, Amorphous Crystals 1+ A, Granular Casts 7-10 A 11/22/20 07:13: Vancomycin Trough 35.1 H* Microbiology - Entire Visit 11/21/20 15:29 Central Line - Right Subclavian Vein Blood Culture - Preliminary Specimen has been received and culture in progress. No Growth to date. 11/21/20 15:34 Venous blood - Right Hand Blood Culture - Preliminary Specimen has been received and culture in progress. No Growth to date. - Physical Exam Vitals: Vital Signs (12 hours) Temp Pulse Resp BP Pulse Ox 11/22/20 14:00 20 11/22/20 12:00 101.2 F H 21 H 11/22/20 10:15 94 134/62 11/22/20 10:00 22 H 11/22/20 08:00 100.2 F H 22 H 100 11/22/20 06:48 96 121/68 11/22/20 06:00 24 H 11/22/20 04:00 98.7 F 23 H Weight Admit Weight 199 lb 14.4 oz Weight 199 lb 14.4 oz Most Recent Monitor Data Heart Rate from ECG 96 NIBP 146/69 NIBP BP-Mean 94 Respiration from ECG 21 SpO2 100 Physical Exam: The patient was seen and examined on the day of discharge. Problem - Discharge Plan Assessment: Cardiorespiratory arrest: Pt found unresponsive upon physician entrance to the room yesterday and no respiration and pulse and code blue activated and CPR started with ACLS protocol and CPR continued for approximatly done 12 min and pt regained pulse and intubated and transfered to ICU. Dr. Wang consulted and physician updated family. Dr. Wang discussed with family and they have switched to DNAR. Plan is to compassionately extubate later today. Transitioning to inpatient hospice Acute respiratory failure with hypoxia and hypercapnea: Intubated and sedated Sepsis: Patient had persistent tachycardia, lactic acidosis and evidence of left lower lobe pneumonia. Treat underlying pneumonia with Cefepime and Vanc. Continue hydration, can d/c fluids once taking good po. Left lower lobe pneumonia: Evident on x-ray and on exam. Likely bacterial in the setting of recent Covid pneumonia. Also suspicious of possible aspiration. Given that he was just in the hospital and lives in a group facility will DC Rocephin and azithromycin and initiate vancomycin and cefepime for healthcare acquired pneumonia. Oropharyngeal dysphagia: Patient with abnormal MBS ST started diet NDD1 pureed with extra sauce/gravy and nectar thick liquids by spoon Lactic acidosis: Patient also has a bit of an anion gap. Resolved. Hyperglycemia/diabetes: Patient has been on steroids subsequent to his Covid pneumonia. Will stop those. It appears as though his insulin dosing has been discontinued at the nursing facility. Somewhat difficult for me to ascertain that information in the records. Continue with sliding scale insulin. Beta hydroxybutyrate- negative. Blood sugars under decent control, may elevate with improved diet. Hypernatremia: Suspect some degree of dehydration due to the hyperglycemia and the use of diuretics. Hydration. Worsening with rehydration so will change fluids to 1/2 NS. Recent COVID-19 pneumonia: Patient tested positive on October 20. He is essentially 30 days out from that diagnosis and no longer requires isolation. He no longer requires specific therapies. Schizophrenia: Continue with his Depakene dosing. Disposition: Plan for compassionate extubation later today. Patient not likely to survive. - Time spent with Patient (mins): 20 Plan - Discharge Medications Home Medications: Medication Instructions Recorded Confirmed Type Ascorbic Acid [Vitamin C] 1,000 mg PO DAILY tab 11/09/20 11/18/20 Rx Furosemide [Lasix] 40 mg PO BID #60 tab 11/09/20 11/18/20 Rx Zinc Sulfate 220 mg PO DAILY cap 11/09/20 11/18/20 Rx Allergies: Penicillins Allergy (Verified 11/18/20 13:48) - Follow up Plan Referrals: Danielle Garduno NP [Primary Care Provider] - Disposition: HOSPICE MEDICAL FACILITY Quality - Care Measures CORE MEASURES:: N/A
== END 2020-11-22 14:58 | disposition hospice, inpatient (51) | DRG 871 ==
LOC: ERS 07:20 → T4-B 08:49 → CCU 11-21 15:12
PROVIDERS: ADMIT Internal Medicine; ATTEND Emergency Medicine
PROC: 5A1935Z Respiratory Ventilation, Less than 24 Consecutive Hours (ICD-10-PCS; principal; 2020-11-21)
PROC: 0BH17EZ Insertion of Endotracheal Airway into Trachea, Via Natural or Artificial Opening (ICD-10-PCS; 2020-11-21)
PROC: 5A12012 Performance of Cardiac Output, Single, Manual (ICD-10-PCS; 2020-11-21)
PROC: 3E033XZ Introduction of Vasopressor into Peripheral Vein, Percutaneous Approach (ICD-10-PCS; 2020-11-21)
DX: A41.89 Other specified sepsis (principal); U07.1 COVID-19; J96.01 Acute respiratory failure with hypoxia; J96.02 Acute respiratory failure with hypercapnia; J69.0 Pneumonitis due to inhalation of food and vomit; J12.82 Pneumonia due to coronavirus disease 2019; I46.9 Cardiac arrest, cause unspecified; R65.21 Severe sepsis with septic shock; J15.9 Unspecified bacterial pneumonia; E87.2 Acidosis; E87.0 Hyperosmolality and hypernatremia; Z66 Do not resuscitate; Z51.5 Encounter for palliative care; R13.12 Dysphagia, oropharyngeal phase; E11.65 Type 2 diabetes mellitus with hyperglycemia; F20.9 Schizophrenia, unspecified; L89.152 Pressure ulcer of sacral region, stage 2; E11.43 Type 2 diabetes mellitus with diabetic autonomic (poly)neuropathy; K31.84 Gastroparesis; N18.30 Chronic kidney disease, stage 3 unspecified; E11.22 Type 2 diabetes mellitus with diabetic chronic kidney disease; I12.9 Hypertensive chronic kidney disease with stage 1 through stage 4 chronic kidney disease, or unspecified chronic kidney disease; H40.9 Unspecified glaucoma; G20 Parkinson's disease; F41.9 Anxiety disorder, unspecified; D63.1 Anemia in chronic kidney disease; R86.0 Abnormal level of enzymes in specimens from male genital organs; F02.80 Dementia in other diseases classified elsewhere, unspecified severity, without behavioral disturbance, psychotic disturbance, mood disturbance, and anxiety; E11.649 Type 2 diabetes mellitus with hypoglycemia without coma; Z78.1 Physical restraint status; Z93.3 Colostomy status; Z79.899 Other long term (current) drug therapy
CPT/HCPCS: 0240U; 36415; 36416; 71045; 71250; 74230; 80048; 80053; 80202; 81001; 82010; 83605; 85025; 87040; 92950; 94002; 94003; 96365; J0153; J0692; J1650; J3370; J3490; J7030

== ENCOUNTER 2020-11-22 15:08 | Inpatient (IN) | payer OTHER ==
[2020-11-22] MEDS ORDERED: Aspirin 81 mg Enteric Coated Tablet ONE (15:41)
[2020-11-22] MEDS ORDERED: Lorazepam 2 MG/ML VIAL ONE (15:41)
[2020-11-22] MEDS ORDERED: Morphine 4 MG/ML VIAL ONE (15:42)
== END 2020-11-22 17:51 | disposition expired | DRG 951 ==
LOC: CCU 15:08
PROVIDERS: ADMIT Family Medicine; ATTEND Family Medicine
DX: Z51.5 Encounter for palliative care (principal); A41.9 Sepsis, unspecified organism; J18.9 Pneumonia, unspecified organism; J96.01 Acute respiratory failure with hypoxia; J96.02 Acute respiratory failure with hypercapnia; E87.0 Hyperosmolality and hypernatremia; E87.2 Acidosis; Z66 Do not resuscitate; F20.9 Schizophrenia, unspecified; F03.90 Unspecified dementia, unspecified severity, without behavioral disturbance, psychotic disturbance, mood disturbance, and anxiety; I12.9 Hypertensive chronic kidney disease with stage 1 through stage 4 chronic kidney disease, or unspecified chronic kidney disease; N18.30 Chronic kidney disease, stage 3 unspecified; E11.22 Type 2 diabetes mellitus with diabetic chronic kidney disease; E78.5 Hyperlipidemia, unspecified; E11.65 Type 2 diabetes mellitus with hyperglycemia; Z93.3 Colostomy status; Z88.0 Allergy status to penicillin
CPT/HCPCS: J2060; J2270